=== PATIENT | male | born 1935 | race Caucasian/White ===

== ENCOUNTER → 2022-01-05 14:46 | Outpatient (BNVA) | payer MEDICARE, SELFPAY | PROVIDERS: Family Provider Family Medicine; PCP Family Medicine; Visit Provider Nurse Practitioner Family | DX: R11.2 Nausea with vomiting, unspecified (principal); R50.9 Fever, unspecified | CPT/HCPCS: 80053; 81003; 85025; 87077; 87086; 87184; 87400; 87426 ==

== ENCOUNTER 2024-10-13 08:29 | Inpatient (IN) | payer MEDICARE, SELFPAY ==
--- OUTSIDE RECORDS SUMMARY | 2011-12-27 03:55 | XMS_ITS | Continuity of Care Document ---
Author Organization [facility] Address [address] [place] [phone] Phone Care Team Providers Care Mica Miner Name Role Phone David Diego MD Unavailable Unavailable Medications Medication Instructions Dosage Effective Dates (start - stop) Status Comments simvastatin 10 mg tablet take 1 tablet (10MG) by oral route every day in the evening 10 MG - Active Advance Directives Directive Yes / No Effective Date File Name No Information Encounters Encounter Description Practice Location Reason(s) For Visit Diagnoses Date Provider Providers Copied on Encounter [facility], [address] [facility], [place], [address], [place] tel:[phone] [facility] [place] Aftercare following surgery of the musculoskeletal system, [facility] Dec- 6-201 2 Johnathon Hernandez. [address], [place], [id number] . tel:[phone] [facility], [address] [facility], [place], [address], [place] tel:[phone] [facility] [place] Pain in joint involving lower leg Oct-0 8-201 2 Johnathon Hernandez. [address], [place], [id number] . [phone] [facility], [address] [facility], [place], [address], [place] tel:[phone] [facility] [place] Pain in joint involving lower leg Oct-0 3-201 2 Johnathon Hernandez. [address], [place], [id number] . [phone] Family History Family Member Type Diagnosis Age At Onset No Information Payers Payer name Insurance type Covered republican ID Authoriza tion(s) No Information Social History Type Description Quantity Date Captured Comments Sex Male Smoking Status No Information Chief Complaint And Reason For Visit No Information Reason For Referral Reason For Referral No Information History Of Present Illness Encounter Date Complaint History Of Prese nt Illness No Information Functional Status Date Functional Assessmen t No Information Instructions Date Instruction Additional Infor mation No Information Assessments Type Assessment Date No Information Patient Care Teams Name Effective Dates (start - stop) Status Members No Information
[2024-10-13] VITALS (16 sets, daily range): BP systolic 94–136; BP diastolic 56–93; PULSE 78–115; RESP 15–35; TEMP 36.8–38.2; O2SAT 88–96; BMI 25.1
--- NOTE | 2024-10-13 08:49 | ECG_ITS ---
[facility]: 2024-10-13 Pat Name: Jonny Chiu Department: Room: Gender: Male Eyeglass Fitter: : 1935 Requested By: Raven Canada Order Number: [id number] Jorge Alberto MD: ANGELA THOMPSON Measurements Intervals [place] Rate: 112 P: -35 CO: 185 QRS: -73 QRSD: 158 T: 101 QT: 406 QTc: 557 Interpretive Statements SINUS TACHYCARDIA INTRAVENTRICULAR CONDUCTION DELAY [130+ ms QRS DURATION] LATERAL MYOCARDIAL INFARCTION , PROBABLY RECENT [40+ ms Q WAVE AND/OR ST/T ABNORMALITY IN I/aVL/V5/V6] ACUTE TN No previous ECG available for comparison Electronically Signed On 10-14-2024 13:56:56 CDT by ANGELA THOMPSON [email or web address] [id number]
--- NOTE | 2024-10-13 08:57 | XRR_ITS ---
PROCEDURE INFORMATION: Exam: XR Chest Exam date and time: 10/13/2024 9:05 AM Age: 89 years old Clinical indication: Fever; Additional info: Weakness; Fever; Headache. TECHNIQUE: Imaging protocol: Radiologic exam of the chest. Views: 1 view. COMPARISON: No relevant prior studies available. FINDINGS: Lungs: Unremarkable. No consolidation. Pleural spaces: Unremarkable. No pleural effusion. No pneumothorax. Heart/Mediastinum: Unremarkable. No cardiomegaly. Vasculature: There is unfolding of the thoracic aorta. Bones/joints: The thoracic spine demonstrates mild degenerative changes at multiple levels. Mild degenerative disease of bilateral acromioclavicular joints. There are mild degenerative changes of the glenohumeral joint. XR/XR chest 1V portable [id number] IMPRESSION: No acute cardiopulmonary process.
--- NOTE | 2024-10-13 09:04 | CTR_ITS ---
PROCEDURE INFORMATION: Exam: CT Abdomen And Pelvis With Contrast Exam date and time: 10/13/2024 9:12 AM Age: 89 years old Clinical indication: Nausea and vomiting and other: Diarrhea, hematuria; Prior surgery; Surgery date: 6+ months; Surgery type: Gallbladder TECHNIQUE: Imaging protocol: Computed tomography of the abdomen and pelvis with contrast. Radiation optimization: All CT scans at this facility use at least one of these dose optimization techniques: automated exposure control; mA and/or kV adjustment per patient size (includes targeted exams where dose is matched to clinical indication); or iterative reconstruction. Contrast material: OMNI 350; Contrast volume: 80 ml; Contrast route: INTRAVENOUS (IV); COMPARISON: CR (CHEST, ) 10/13/2024 9:05 AM RADIATION DOSE METRICS: Total DLP (mGy-cm): 541.17 FINDINGS: Coronary arteries: There is moderate atherosclerotic calcification of the coronary arteries. Liver: Hypodense lesion in segment 2 of the liver measuring 1.2 cm, not fully characterized simple on the current study. Gallbladder and biliary ducts: There has been a cholecystectomy. Pancreas: Normal. No ductal dilation. Spleen: Normal. No splenomegaly. Adrenal glands: Normal. No mass. Kidneys and ureters: Bilateral simple renal cysts measuring up to 4.2 cm in the interpolar region of the right kidney. There is no evidence of hydronephrosis. Stomach and bowel: There is mildly excessive colonic stool content. Appendix: No evidence of appendicitis. Intraperitoneal space: Unremarkable. No free air. No significant fluid collection. Vasculature: There are numerous benign phleboliths in the pelvis. The vasculature demonstrates diffuse moderate atherosclerotic calcification. Mild stenosis at the origin of the celiac artery and superior mesenteric artery. Lymph nodes: Unremarkable. No enlarged lymph nodes. Urinary bladder: Unremarkable as visualized. Reproductive: Enlarged prostate gland with its median lobe impinging on the neck of the bladder. Bones/joints: There are mild degenerative changes of the sacroiliac joints. There has been a right total hip arthroplasty. Left hip mildThe pubic symphysis demonstrates mild degenerative changes. There are diffuse enthesopathic changes consistent with benign diffuse idiopathic skeletal hyperostosis (DISH). Soft tissues: There are bilateral fat containing inguinal hernias. CT/CT abdomen pelvis w con* [id number] IMPRESSION: No hydronephrosis on either side or urinary stones. COMMENTS: Consistent with the [employer]'s Incidental Findings Committee white paper (J Am Roberta Radiol 2018): Any incidental renal lesion less than 1 cm or classified as too small to characterize, or any incidental cystic renal lesion characterized as simple-appearing, is likely benign. No follow-up imaging is recommended for these lesions per consensus recommendations based on imaging criteria.
[2024-10-13 09:10] LABS: Hematocrit 44.2 % (37-53); Hemoglobin 15.10 g/dL (11.27-16.99); Mean Corpuscular HGB Conc 34.2 g/dL (30-55); Mean Corpuscular Hemoglobin 30.3 pg (27-33); Mean Corpuscular Volume 88.8 fl (82-101); Nucleated Red Blood Cells % 0 %; Platelet Count 163 10^3/cmm (157-399); Red Blood Count 4.98 10^6/uL (3.85-5.65); White Blood Count 19.84 10^3/uL (3.29-11.43)
--- NOTE | 2024-10-13 09:14 | W.ED.NAVMDI ---
HPI - Nausea/Vomiting/Diarrhea General: Chief complaint: Nausea/Vomiting/Diarrhea Stated complaint: N/V/D headache fever peeing blood Time Seen by Provider: 10/13/24 08:55 Source: patient Mode of arrival: ambulatory Limitations: no limitations History of Present Illness: 89-year-old male states that since yesterday has not been feeling well he states he has had generalized bodyaches headache along with nausea vomiting some diarrhea. States he is also had some blood in his urine and diffuse abdominal cramping. He denies any cough or chest pain denies any fevers denies any worse or improving factors. Associated nausea: Yes Associated symtoms: Reports malaise and nausea; Denies chest pain, dysuria or headache(s) Related Data Home Medications ?Medication ?Instructions ?Recorded ?Confirmed simvastatin 5 mg tablet 5 mg PO DAILY 01/05/22 01/05/22 Previous Rx's ?Medication ?Instructions ?Recorded ciprofloxacin HCl 500 mg tablet 500 mg PO BID 10 days #20 tabs 01/05/22 (Cipro) ondansetron 8 mg disintegrating 8 mg PO Q8H PRN nausea and 01/05/22 tablet vomiting #20 tabs Allergies Allergy/AdvReac Type Severity Reaction Status Date / Time No Known Allergies Allergy Unverified 01/05/22 13:52 Review of Systems Const: Reports: malaise; Denies: fever(s), chills, body aches or change in appetite Eyes: Denies: blurry vision or eye discomfort ENMT: Denies: throat pain or dental pain Card: Denies: chest pain Resp: Denies: dyspnea GI: Reports: abdominal pain, nausea, vomiting and diarrhea : Denies: dysuria Musc: Denies: neck pain or back pain Skin/Breast: Denies: rash Neuro: Denies: headache(s) PFSH ED PFSH: Social History Smoking and tobacco/nicotine status: never used tobacco/nicotine Alcohol intake: never Physical Exam Const: COMMON NORMALS: no acute distress, patient oriented x3 and healthy appearing HENMT: COMMON NORMALS: normocephalic and atraumatic HEAD & SCALP: normocephalic and atraumatic Eye: COMMON NORMALS: conjunctivae normal CONJUNCTIVA: Yes conjunctivae normal Neck/C-Spine: COMMON NORMALS: full ROM and supple Chest: COMMONS NORMALS: normal inspection of the chest and normal palpation of entire chest wall Resp: COMMON NORMALS: normal respiratory effort, No retractions, No use of accessory muscles and clear to auscultation bilaterally AUSCULTATION: clear to auscultation bilaterally Cardio: COMMON NORMALS: regular rhythm and No murmurs present (Cardio) RATE: tachycardic RHYTHM: regular rhythm GI: COMMON NORMALS: Normal to inspection, nondistended, normoactive bowel sounds present, Soft to palpation, non-tender and no masses PALPATION: Yes Soft to palpation Extremity: COMMON NORMALS: normal to inspection and full ROM Neuro: COMMON NORMALS: patient oriented x3, moves all extremities and no focal motor deficits Psych: COMMON NORMALS: mental status grossly normal, Normal thought process present and cooperative THOUGHT PROCESS: Normal thought process present Skin: COMMON NORMALS: no rashes or lesions noted and no wounds GENERAL SKIN EXAM: no rashes or lesions noted Course Vital Signs: Vital signs: Vital Signs Temperature 98.2 F 10/13/24 08:44 Pulse Rate 111 H 10/13/24 09:07 Respiratory Rate 20 H 10/13/24 09:07 Blood Pressure 127/93 10/13/24 09:07 Pulse Oximetry 96 10/13/24 09:07 Oxygen Delivery Me thod Room Air 10/13/24 08:44 MDM - Nausea/Vomiting/Diarrhea Medical Decision Making Patient presents here with generalized weakness he does have a urinary tract infection with elevated white count his blood pressures here been stable did give him a sepsis bolus along with antibiotics spoke to hospitalist will admit at this time. Medical Records I reviewed the patient's medical records. Lab Data I reviewed the patient's lab results. 10/13/24 09:03 10/13/24 09:03 Radiology Impressions Chest X-Ray 10/13/24 08:57 IMPRESSION: No acute cardiopulmonary process. Abdomen/Pelvis CT 10/13/24 09:04 IMPRESSION: No hydronephrosis on either side or urinary stones. COMMENTS: Consistent with the [employer]'s Incidental Findings Committee white paper (J Am Roberta Radiol 2018): Any incidental renal lesion less than 1 cm or classified as too small to characterize, or any incidental cystic renal lesion characterized as simple-appearing, is likely benign. No follow-up imaging is recommended for these lesions per consensus recommendations based on imaging criteria. Laboratory Results WBC 19.84 10^3/uL (3.29-11.43) H 10/13/24 09:03 RBC 4.98 10^6/uL (3.85-5.65) 10/13/24 09:03 Hgb 15.10 g/dL (11.27-16.99) 10/13/24 09:03 Hct 44.2 % (37-53) 10/13/24 09:03 MCV 88.8 fl (82-101) 10/13/24 09:03 MCH 30.3 pg (27-33) 10/13/24 09:03 MCHC 34.2 g/dL (30-55) 10/13/24 09:03 RDW 12.1 % (12.1-15.1) 10/13/24 09:03 Plt Count 163 10^3/cmm (157-399) 10/13/24 09:03 MPV 8.1 fL (7.4-10.4) 10/13/24 09:03 Neut % (Auto) 89.1 % 10/13/24 09:03 Lymph % (Auto) 3.9 % 10/13/24 09:03 [place] % (Auto) 6.1 % 10/13/24 09:03 Eos % (Auto) 0.0 % 10/13/24 09:03 Baso % (Auto) 0.2 % 10/13/24 09:03 Neut # (Auto) 17.68 10^3/uL (1.8-7.7) H 10/13/24 09:03 Lymph # (Auto) 0.8 10^3/uL (0.8-4.8) 10/13/24 09:03 [place] # (Auto) 1.2 10^3/uL (0.2-0.9) H 10/13/24 09:03 Eos # (Auto) 0.0 10^3/uL (0.0-0.8) 10/13/24 09:03 Baso # (Auto) 0.0 10^3/uL (0.0-0.1) 10/13/24 09:03 Nucleated RBC % (auto) 0 % 10/13/24 09:03 Nucleated RBCs # 0.0 /100WBC 10/13/24 09:03 Sodium 134 mmol/L (136-145) L 10/13/24 09:03 Potassium 4.1 mmol/L (3.5-5.1) 10/13/24 09:03 Chloride 99 mmol/L (98-107) 10/13/24 09:03 Carbon Dioxide 21 mmol/L (22-29) L 10/13/24 09:03 Anion Gap 18.1 (5-19) 10/13/24 09:03 BUN 20 mg/dL (8-23) 10/13/24 09:03 Creatinine 1.1 mg/dL (0.7-1.2) 10/13/24 09:03 GFR Calculation Not Reportable 10/13/24 09:03 Glucose 143 mg/dL (65-115) H 10/13/24 09:03 Calculated Osmolality 283 mOsm/kg (285-295) L 10/13/24 09:03 Lactic Acid 3.2 mmol/L (0.5-2.2) H 10/13/24 09:03 Calcium 9.8 mg/dL (8.5-10.5) 10/13/24 09:03 Total Bilirubin 1.2 mg/dL (0.15-1.2) 10/13/24 09:03 AST 17 U/L (0-40) 10/13/24 09:03 ALT 14 U/L (0-41) 10/13/24 09:03 Alkaline Phosphatase 113 U/L (40-130) 10/13/24 09:03 Total Protein 7.6 g/dL (6.6-8.7) 10/13/24 09:03 Albumin 4.2 g/dL (3.5-5.2) 10/13/24 09:03 Globulin 3.4 g/dL (1.3-4.6) 10/13/24 09:03 Lipase 17 U/L (13-60) 10/13/24 09:03 Urine Color Red (Yellow) A 10/13/24 08:53 Urine Appearance Turbid (CLEAR) A 10/13/24 08:53 Urine pH 5.5 (5-7) 10/13/24 08:53 Ur Specific [place] 1.028 (1.005-1.030) 10/13/24 08:53 Urine Protein 1+ (Negative) A 10/13/24 08:53 Urine Glucose (UA) Negative (Normal) 10/13/24 08:53 Urine Ketones 1+ (Negative) H 10/13/24 08:53 Urine Blood 1+ (Negative) A 10/13/24 08:53 Urine Nitrate Positive (Negative) A 10/13/24 08:53 Urine Bilirubin 1+ (Negative) H 10/13/24 08:53 Urine Urobilinogen 1.0 mg/dL (Negative) 10/13/24 08:53 Ur Leukocyte Esterase 3+ (Negative) A 10/13/24 08:53 Urine RBC >100 /hpf (0-2) H 10/13/24 08:53 Urine WBC >100 /hpf (0-5) H 10/13/24 08:53 Ur Squamous Epith Cells 0-5 /hpf (0-5) 10/13/24 08:53 Amorphous Sediment Not Reportable 10/13/24 08:53 Urine Bacteria 4+ /hpf (NONE) H 10/13/24 08:53 Hyaline Casts 0.0 /lpf 10/13/24 08:53 All radiology interpretation(s) finalized by discharge Discharge Plan Discharge Patient Disposition: Admitted As Inpatient Clinical Impression: UTI (urinary tract infection) Condition: Stable Coding Level of Care Code ED Transition Manager for Curt Agosto
[2024-10-13] MEDS: iohexol 350 mg/mL 500 mL Btl (per mL) IV (09:19)
[2024-10-13 09:26] LABS: Glucose Urine UA Negative (Normal); Nitrate Urine Positive (Negative); Specific Gravity, Urine 1.028 (1.005-1.030)
[2024-10-13 09:33] LABS: Alanine Aminotransferase 14 U/L (0-41); Albumin Level 4.2 g/dL (3.5-5.2); Alkaline Phosphatase 113 U/L (40-130); Anion Gap 18.1 (5-19); Aspartate Amino Transferase 17 U/L (0-40); Blood Urea Nitrogen 20 mg/dL (8-23); Calcium 9.8 mg/dL (8.5-10.5); Carbon Dioxide 21 mmol/L (22-29); Chloride 99 mmol/L (98-107); Creatinine Clr Calc Pharmacy 48.1029; Globulin 3.4 g/dL (1.3-4.6); Glucose 143 mg/dL (65-115); Lipase 17 U/L (13-60); Osmolality Calculated 283 mOsm/kg (285-295); Potassium 4.1 mmol/L (3.5-5.1); Sodium 134 mmol/L (136-145); Total Protein 7.6 g/dL (6.6-8.7)
[2024-10-13 09:34] LABS: Lactic Sepsis W/Reflex 3.2 mmol/L (0.5-2.2)
[2024-10-13 09:44] LABS: Add Urine Microscopic? YES; UA Slide Review UA Slide Review Perf
[2024-10-13] MEDS: ondansetron 2 mg/ML SDV 2 mL 4 MG IVP ×2 (09:52→23:11)
[2024-10-13] MEDS: cefTRIAXone 1,000 mg SDV 1000 MG IVP (09:56)
[2024-10-13 11:05] LABS: Reflex Lactate Order REFLEX LACTIC ORDERD
[2024-10-13 12:24] LABS: Lactic Acid level (Lactate) 2.1 mmol/L (0.5-2.2)
--- NOTE | 2024-10-13 13:21 | PM.HP ---
Providers/Chief Complaint Admitting Physician: Charissa Lares MD Chief Complaint: N/V/D headache fever peeing blood History of Present Illness Jonny Chiu is a 89 year old male with past medical history of coronary disease with PCI, hyperlipidemia, lives in [facility] presented to the hospital for feeling ill since yesterday around noon. He has been having nausea vomiting diarrhea and blood in urine. He states he has been incontinent since yesterday. In the past has not had similar issues. He is also experiencing chills. In ER CT abdomen pelvis was pursued which did not show any hydronephrosis or urinary stones. WBC count 19,000, creatinine 1.1, lactic acid 3.2. Urinalysis shows 3+ leukocyte esterase, greater than 100 WBC, 1+ ketones positive nitrates, 4+ bacteria Medications/Allergies Home Medications ?Medication ?Instructions ?Recorded ?Confirmed ?Last Taken ?Type aspirin 81 mg tablet,delayed 81 mg PO DAILY 10/13/24 10/13/24 10/12/24 07:00 History release ([place] Low Dose Aspirin) cholecalciferol (vitamin D3) 125 125 mcg PO DAILY 10/13/24 10/13/24 10/12/24 08:00 History mcg (5,000 unit) tablet (Vitamin D3) clopidogrel 75 mg tablet 75 mg PO DAILY 10/13/24 10/13/24 10/12/24 07:00 History coenzyme Q10 30 mg capsule 30 mg PO DAILY 10/13/24 10/13/24 10/12/24 08:00 History metoprolol tartrate 25 mg tablet 25 mg PO BID 10/13/24 10/13/24 10/12/24 07:00 History multivitamin with minerals-folic 1 tab PO DAILY 10/13/24 10/13/24 10/12/24 08:00 History acid 400 mcg-lycopene 370 mcg tablet (One-A-Day Men's 50 Plus) nitroglycerin 0.4 mg sublingual See Rx Instructions .Route .COMPLEX 10/13/24 10/13/24 Unknown History tablet omega 9-zdi-rug-fish oil 60 mg-90 1 cap PO DAILY 10/13/24 10/13/24 10/12/24 08:00 History mg-500 mg capsule (Fish Oil) simvastatin 40 mg tablet 40 mg PO QPM 08/06/0410/13/24 10/11/24 20:00 History vitamin B complex 1 tab PO DAILY 10/13/24 10/13/24 10/11/24 History vitamins A,C,C-ravj-fendcu 2,148 2 tab PO BID 10/13/24 10/13/24 10/12/24 07:00 History mcg-113 mg-45 mg-17.4 mg tablet (PreserVision AREDS) Allergies Allergy/AdvReac Type Severity Reaction Status Date / Time No Known Allergies Allergy Unverified 01/05/22 13:52 PFSH Acute PFSH: Social History Smoking and tobacco/nicotine status: never used tobacco/nicotine Alcohol intake: never Vitals/I&O/Wt Last Vital Signs Temp 98.2 F 10/13/24 08:44 Pulse 110 H 10/13/24 12:00 Resp 19 H 10/13/24 12:00 BP 116/66 10/13/24 12:00 Pulse Ox 92 10/13/24 12:00 O2 Del Method Room Air 10/13/24 08:44 10/12/24 10/13/24 10/13/24 22:59 06:59 14:59 Intake Total 0 / 0 Balance 0 / 0 Weight last 48 hrs Weight 77.111 kg Physical Exam Narrative: General: Alert oriented x3, patient seen laying in bed stating he is feeling really cold and having chills. He is covered with 4 blankets. Requesting for another warm blanket. at bedside. HEENT: Normocephalic, atraumatic, EOMI, breathing room air. Cardio: Regular rate rhythm, normal S1-S2, Respiratory: Clear to auscultation bilaterally no wheezes no rhonchi. GI: Abdomen soft, nontender, nondistended, bowel sounds + Extremities: No edema bilateral lower extremities Data 10/13/24 09:03 10/13/24 09:03 Micro: Microbiology 10/13/24 09:42 Blood Culture - Preliminary Blood SPECIMEN COLLECTED 10/13/24 09:40 Blood Culture - Preliminary Blood SPECIMEN COLLECTED A&P Assessment and plan 1. UTI (urinary tract infection): 2. Nausea & vomitin. Fever: 4. Coronary disease: 5. Diarrhea: Plan: #UTI #CAD status post PCI #Hyperlipidemia #Nausea vomiting diarrhea ? Hemoglobin is stable at this time. ? Check stool culture ? Denies drinking or smoking. ? Continue on aspirin Plavix metoprolol tartrate ? CT abdomen without any hydronephrosis ? Patient having chills, had a fever at home 101 ? Continue on Zosyn ? Await urine culture, blood cultures Placed on gentle IV fluid hydration 75 cc/h. ? Lactic acid 3.2 initially however now has normalized. ? White count is 20,000 possibly secondary to UTI ? I will refrain from placing a Ortega at this time due to active infection. DVT prophylaxis: Heparin SQ twice daily Full code PDMP PDMP Reviewed: Not Reviewed Attestations Medical Necessity Statement*: UTI, greater than 2 midnight stay for management of UTI. Diagnoses UTI (urinary tract infection) N39.0 Nausea & vomiting R11.2 Fever R50.9 Coronary disease I25.10 Diarrhea R19.7
[2024-10-13 13:59] LABS: Procalcitonin 0.54 ng/mL (0-0.5); Thyroid Stimulating Hormone 1.22 uIU/mL (0.27-4.20)
[2024-10-13 14:10] LABS: Cholesterol 91 mg/dL (0-200); HDL Cholesterol 36 mg/dL (60-100); Triglycerides 84 mg/dL (0-150)
[2024-10-13] MEDS: heparin 5,000 unit/mL INJ 1 mL 5000 UNIT SUBCUT (14:45)
[2024-10-13] MEDS: piperacillin-tazobactam 3.375 GM in sodium chloride 0.9% (plus) 50 ML IV ×2 (15:42→22:08)
[2024-10-13] MEDS: ATORVASTATIN 10 MG TABLET 20 MG PO (17:10)
--- NOTE | 2024-10-13 17:52 | PC.NURSE ---
Bladder scanned patient post void. Patient voided 100ml, bladder scan showed 30ml retained.
[2024-10-14] VITALS (7 sets, daily range): BP systolic 93–113; BP diastolic 56–65; PULSE 65–88; RESP 15–17; TEMP 36.3–37; O2SAT 90–95
--- NOTE | 2024-10-14 03:03 | ECG_ITS ---
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1935 Requested By: Marya Travis Order Number: [id number] Reading MD: ANGELA THOMPSON Measurements Intervals [place] Rate: 83 P: 0 [place]: 0 QRS: -73 QRSD: 164 T: 97 QT: 427 QTc: 504 Interpretive Statements ATRIAL FIBRILLATION INTRAVENTRICULAR CONDUCTION DELAY [130+ ms QRS DURATION] LATERAL MYOCARDIAL INFARCTION , PROBABLY indeterminate [40+ ms Q WAVE AND/OR ST/T ABNORMALITY IN I/aVL/V5/V6] Compared to ECG 10/13/2024 08:49:36 Sinus tachycardia no longer present Myocardial infarct finding still present Electronically Signed On 10-14-2024 13:55:23 CDT by ANGELA THOMPSON [email or web address]
--- NOTE | 2024-10-14 03:31 | PC.NURSE ---
Oxygen Pt. oxygen at this time is 87-89% on room air. Lung sounds remain clear. Patient placed on 2L NC with oxygen returning to 94%. Patient is in afib with HR 84 on telemetry, confirmed by EKG. Awaiting reply from Dr. Solo as afib is not noted in patient history.
[2024-10-14 04:02] LABS: Hematocrit 34.9 % (37-53); Hemoglobin 12.00 g/dL (11.27-16.99); Mean Corpuscular HGB Conc 34.4 g/dL (30-55); Mean Corpuscular Hemoglobin 30.3 pg (27-33); Mean Corpuscular Volume 88.1 fl (82-101); Nucleated Red Blood Cells % 0 %; Platelet Count 114 10^3/cmm (157-399); Red Blood Count 3.96 10^6/uL (3.85-5.65); White Blood Count 19.07 10^3/uL (3.29-11.43)
[2024-10-14 04:24] LABS: Alanine Aminotransferase 11 U/L (0-41); Albumin Level 3.2 g/dL (3.5-5.2); Alkaline Phosphatase 96 U/L (40-130); Anion Gap 13.6 (5-19); Aspartate Amino Transferase 26 U/L (0-40); Blood Urea Nitrogen 20 mg/dL (8-23); Calcium 8.3 mg/dL (8.5-10.5); Carbon Dioxide 20 mmol/L (22-29); Chloride 104 mmol/L (98-107); Creatinine Clr Calc Pharmacy 58.7924; Globulin 2.6 g/dL (1.3-4.6); Glucose 133 mg/dL (65-115); Magnesium 2.1 mg/dL (1.7-2.3); Osmolality Calculated 283 mOsm/kg (285-295); Potassium 3.6 mmol/L (3.5-5.1); Sodium 134 mmol/L (136-145); Total Protein 5.8 g/dL (6.6-8.7)
[2024-10-14] MEDS: piperacillin-tazobactam 3.375 GM in sodium chloride 0.9% (plus) 50 ML IV ×3 (05:05→19:31)
[2024-10-14 12:21] LABS: Iron 14 ug/dL (59-158); Total Iron Binding Capacity 159 mcg/dl; Unsaturated Iron Binding 145 ug/dL (112-347)
[2024-10-14 12:24] LABS: Estmated Average Glucose 108; Hemoglobin A1C 5.4 % (4.0-6.0)
[2024-10-14 12:38] LABS: Procalcitonin 2.12 ng/mL (0-0.5); Vitamin B12 604 pg/mL (232-1245)
[2024-10-14] MEDS: HYDROcodone-acetaminophen 5-325 mg Tablet 1 TAB PO (14:11)
--- NOTE | 2024-10-14 16:14 | P.PN_ITS ---
Subjective 2 Subjective: Hospital course, labs appreciated. Patient laying comfortably in bed. Denies any nausea, vomiting, headache. States feeling slightly better. On review since patient has been having hematuria since admission. Patient states hematuria started around 6 to 12 hours prior to admission. Vitals/I&O/Wt Last Vital Signs Temp 98.3 F 10/14/24 16:00 Pulse 67 10/14/24 16:00 Resp 17 10/14/24 16:00 BP 113/65 10/14/24 16:00 Pulse Ox 93 10/14/24 16:00 O2 Del Method Room Air 10/14/24 09:57 O2 Flow Rate 2 10/14/24 09:57 10/14/24 10/14/24 10/14/24 06:59 14:59 22:59 Intake Total 1050 / 3600 530 / 530 Output Total 225 / 625 Balance 825 / 2975 530 / 530 Weight last 48 hrs Weight 79.832 kg Weight 77.111 kg Physical Exam 2 Narrative: General: Alert oriented x3, patient seen laying in bed stating he is feeling really cold and having chills. He is covered with 4 blankets. Requesting for another warm blanket. at bedside. HEENT: Normocephalic, atraumatic, EOMI, breathing room air. Cardio: Regular rate rhythm, normal S1-S2, Respiratory: Clear to auscultation bilaterally no wheezes no rhonchi. GI: Abdomen soft, nontender, nondistended, bowel sounds + Extremities: No edema bilateral lower extremities Data 10/14/24 03:46 10/14/24 03:46 Micro: Microbiology 10/13/24 08:53 Urine Culture - Preliminary Urine,Clean Catch Gram Negative Rods 10/13/24 09:42 Blood Culture - Preliminary Blood NEGATIVE TO DATE 10/13/24 09:40 Blood Culture - Preliminary Blood NEGATIVE TO DATE A&P Assessment and plan 1. UTI (urinary tract infection): With hematuria. CT on pelvis on admission negative for kidney stones or hydronephrosis. Follow-up blood culture, urine culture. Continue with IV ceftriaxone 1 g daily. De-escalate as per culture sensitivities. NS at 75 cc/h. 2. Hematuria: Could be in setting of acute cystitis. Hemoglobin stable. Will plan for CBI. Patient is agreeable. Start on Pyridium 200 mg 3 times daily for 3 days along with Flomax 0.4 mg daily. If hematuria not subsiding in next 24 to 48 hours patient will possibly need to be transition to a tertiary center where urology is available. 3. Nausea & vomitin. Fever: 5. Coronary disease: With recent PCI. Continue with home dose of aspirin, statin. Holding off on Plavix given hematuria. Blood pressure soft. Hold off on beta-richard for now. 6. Diarrhea: Plan: Full code. SCD for DVT prophylaxis. Hold off on heparin for DVT prophylaxis. Famotidine for PUD prophylaxis PDMP PDMP Reviewed: Not Reviewed Attestations 2 Medical Necessity Statement*: Requires further hospitalization for management of UTI/cystitis with hematuria Diagnoses UTI (urinary tract infection) N39.0 Hematuria R31.9 Nausea & vomiting R11.2 Fever R50.9 Coronary disease I25.10 Diarrhea R19.7
[2024-10-14] MEDS: ATORVASTATIN 10 MG TABLET 20 MG PO (18:12)
[2024-10-15] VITALS (7 sets, daily range): BP systolic 110–120; BP diastolic 63–69; PULSE 68–86; RESP 16–18; TEMP 36.9–37.6; O2SAT 90–95
[2024-10-15] MEDS: piperacillin-tazobactam 3.375 GM in sodium chloride 0.9% (plus) 50 ML IV ×3 (02:35→18:31)
--- NOTE | 2024-10-15 05:00 | PC.NURSE ---
pt states he is no longer hurting and declines to have the ordered morphine or oral meds at this time. Pt verbalized understanding that they were available if he did want them.
[2024-10-15 05:05] LABS: Hematocrit 32.5 % (37-53); Hemoglobin 11.00 g/dL (11.27-16.99); Mean Corpuscular HGB Conc 33.8 g/dL (30-55); Mean Corpuscular Hemoglobin 30.1 pg (27-33); Mean Corpuscular Volume 88.8 fl (82-101); Nucleated Red Blood Cells % 0 %; Platelet Count 111 10^3/cmm (157-399); Red Blood Count 3.66 10^6/uL (3.85-5.65); White Blood Count 12.92 10^3/uL (3.29-11.43)
[2024-10-15 05:28] LABS: Alanine Aminotransferase 12 U/L (0-41); Albumin Level 3.0 g/dL (3.5-5.2); Alkaline Phosphatase 82 U/L (40-130); Anion Gap 14.0 (5-19); Aspartate Amino Transferase 22 U/L (0-40); Blood Urea Nitrogen 17 mg/dL (8-23); Calcium 8.3 mg/dL (8.5-10.5); Carbon Dioxide 20 mmol/L (22-29); Chloride 105 mmol/L (98-107); Creatinine Clr Calc Pharmacy 67.1241; Globulin 2.7 g/dL (1.3-4.6); Glucose 114 mg/dL (65-115); Magnesium 2.2 mg/dL (1.7-2.3); Osmolality Calculated 282 mOsm/kg (285-295); Potassium 4.0 mmol/L (3.5-5.1); Sodium 135 mmol/L (136-145); Total Protein 5.7 g/dL (6.6-8.7)
--- NOTE | 2024-10-15 14:14 | P.PN_ITS ---
Subjective 2 Subjective: No acute events overnight. Patient has remained hemodynamically stable and afebrile. Has been continued on CBI overnight. Hematuria had decreased with CBI but on withholding started having urinary clots. Currently states feeling better. Denies any nausea, vomiting. Vitals/I&O/Wt Last Vital Signs Temp 98.5 F 10/15/24 11:30 Pulse 68 10/15/24 11:30 Resp 17 10/15/24 11:30 BP 116/64 10/15/24 11:30 Pulse Ox 95 10/15/24 11:30 O2 Del Method Nasal Cannula 10/15/24 11:30 O2 Flow Rate 2 10/15/24 11:30 10/14/24 10/15/24 10/15/24 22:59 06:59 14:59 Intake Total 1530 / 2060 100 / 2160 1430 / 1430 Balance 1530 / 2060 100 / 2160 1430 / 1430 Weight last 48 hrs Weight 83.631 kg Weight 79.832 kg Physical Exam 2 Narrative: General: Alert oriented x3, patient seen laying in bed stating he is feeling really cold and having chills. He is covered with 4 blankets. Requesting for another warm blanket. at bedside. HEENT: Normocephalic, atraumatic, EOMI, breathing room air. Cardio: Regular rate rhythm, normal S1-S2, Respiratory: Clear to auscultation bilaterally no wheezes no rhonchi. GI: Abdomen soft, nontender, nondistended, bowel sounds + Extremities: No edema bilateral lower extremities Data 10/15/24 04:28 10/15/24 04:28 Micro: Microbiology 10/13/24 08:53 Urine Culture - Final Urine,Clean Catch Escherichia coli 10/13/24 09:42 Blood Culture - Preliminary Blood NEGATIVE TO DATE 10/13/24 09:40 Blood Culture - Preliminary Blood NEGATIVE TO DATE A&P Assessment and plan 1. UTI (urinary tract infection): With hematuria. CT on pelvis on admission negative for kidney stones or hydronephrosis. Follow-up blood culture, urine culture. Continue with IV ceftriaxone 1 g daily. De-escalate as per culture sensitivities. NS at 75 cc/h. 2. Hematuria: Could be in setting of acute cystitis. Hemoglobin stable. Will plan for CBI. Patient is agreeable. Start on Pyridium 200 mg 3 times daily for 3 days along with Flomax 0.4 mg daily. If hematuria not subsiding in next 24 to 48 hours patient will possibly need to be transition to a tertiary center where urology is available. 3. Nausea & vomitin. Fever: 5. Coronary disease: With recent PCI. Continue with home dose of aspirin, statin. Holding off on Plavix given hematuria. Blood pressure soft. Hold off on beta-richard for now. 6. Diarrhea: Plan: Full code. SCD for DVT prophylaxis. Hold off on heparin for DVT prophylaxis. Famotidine for PUD prophylaxis Plan for the day: Appreciate urine culture and blood culture. Urine culture grew concerning for pansensitive E. coli. Appreciate sensitivity. For now we will continue with IV Zosyn. Continues to have hematuria. Continue with CBI for now. Will wean CBI down depending on hematuria going forward. If he continues to have hematuria in next 24 to 48 hours we will need to transfer to a tertiary center where urology is available. For now continue with Pyridium 200 mg twice daily for next 3 days, Flomax. Continue with NS at 75 cc/h. PDMP PDMP Reviewed: Not Reviewed Attestations 2 Medical Necessity Statement*: Requires further hospitalization for management of UTI/cystitis concern for hematuria requiring CBI Diagnoses UTI (urinary tract infection) N39.0 Hematuria R31.9 Nausea & vomiting R11.2 Fever R50.9 Coronary disease I25.10 Diarrhea R19.7
[2024-10-15] MEDS: ATORVASTATIN 10 MG TABLET 20 MG PO (17:25)
[2024-10-16] VITALS (7 sets, daily range): BP systolic 112–129; BP diastolic 64–77; PULSE 71–97; RESP 16–19; TEMP 36.7–37.2; O2SAT 90–97
[2024-10-16] MEDS: piperacillin-tazobactam 3.375 GM in sodium chloride 0.9% (plus) 50 ML IV ×3 (02:46→23:51)
[2024-10-16 05:21] LABS: Hematocrit 31.1 % (37-53); Hemoglobin 10.20 g/dL (11.27-16.99); Mean Corpuscular HGB Conc 32.8 g/dL (30-55); Mean Corpuscular Hemoglobin 29.7 pg (27-33); Mean Corpuscular Volume 90.7 fl (82-101); Nucleated Red Blood Cells % 0 %; Platelet Count 131 10^3/cmm (157-399); Red Blood Count 3.43 10^6/uL (3.85-5.65); White Blood Count 9.42 10^3/uL (3.29-11.43)
[2024-10-16 05:37] LABS: Alanine Aminotransferase 21 U/L (0-41); Albumin Level 2.8 g/dL (3.5-5.2); Alkaline Phosphatase 166 U/L (40-130); Anion Gap 12.7 (5-19); Aspartate Amino Transferase 32 U/L (0-40); Blood Urea Nitrogen 13 mg/dL (8-23); Calcium 8.2 mg/dL (8.5-10.5); Carbon Dioxide 21 mmol/L (22-29); Chloride 102 mmol/L (98-107); Creatinine Clr Calc Pharmacy 68.4959; Globulin 2.8 g/dL (1.3-4.6); Glucose 119 mg/dL (65-115); Osmolality Calculated 275 mOsm/kg (285-295); Potassium 3.7 mmol/L (3.5-5.1); Sodium 132 mmol/L (136-145); Total Protein 5.6 g/dL (6.6-8.7)
[2024-10-16] MEDS: fluticasone nasal spray 16gm Btl 1 SPRAY NASAL (07:03)
--- NOTE | 2024-10-16 08:59 | XR_ITS ---
WS: [id number] XR chest 1V portable [id number] REASON FOR EXAM: sob FINDINGS: Diffuse reticular and groundglass opacities with peribronchial cuffing in the right upper lung with volume loss. Similar but less severe findings are noted in the right lower lung and within the left lower lung. The left costophrenic angle is blunted. Lung alexander were clear on the portable chest x-ray of 10/13/2024. There was no pleural effusion on the CT scan of the same date. Moderate ectasia and mild tortuosity of the thoracic aorta. Normal heart size with coronary artery stent/stents. Degenerative spondylosis in the thoracic spine. XR/XR chest 1V portable [id number] IMPRESSION: The rapidity of development and the multiple locations of the lung abnormalitie s suggest the possibility of aspiration. Very atypical pattern for pulmonary ed shanae. Viral pneumonitis is possible.
[2024-10-16 09:33] LABS: Magnesium 2.1 mg/dL (1.7-2.3)
[2024-10-16] MEDS: cefTRIAXone 1,000 mg SDV 1000 MG IVP (09:37)
--- NOTE | 2024-10-16 10:11 | ECG_ITS ---
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 Measurements Intervals [place] Rate: 85 P: 43 DC: 256 QRS: -68 QRSD: 164 T: 81 QT: 418 QTc: 499 Interpretive Statements SINUS RHYTHM WITH FIRST DEGREE AV BLOCK LEFT AXIS DEVIATION [QRS AXIS < -30] INTRAVENTRICULAR CONDUCTION DELAY [130+ ms QRS DURATION] LATERAL MYOCARDIAL INFARCTION , OF INDETERMINATE AGE [40+ ms Q WAVE AND/OR ST/T ABNORMALITY IN I/aVL/V5/V6] Compared to ECG 10/14/2024 03:08:52 First degree AV block now present Left-axis deviation now present Atrial fibrillation no longer present Myocardial infarct finding still present Electronically Signed On 10-16-2024 22:49:59 CDT by Dianne Sheridan M.D. [id number]
[2024-10-16 10:32] LABS: Troponin(5th) Baseline 95 ng/L (0-15)
--- NOTE | 2024-10-16 11:07 | PC.SOCIAL ---
IMM Update pg 2 of IMM Updated and reviewed w/ patient. Copy provided and copy dated, initialed and placed in chart.
--- NOTE | 2024-10-16 11:55 | USCV_ITS ---
Jonny Chiu Age: 89 Gender: M : 1935 Exam Date: 10/16/2024 12:09 Ordering Phys: Toni Lobo MD Technologist: Exam Location: [facility] [place] Indication: cp murmur BP: 134 / 74 HR: 80 Rhythm: Sinus Technical Quality: Adequate MEASUREMENTS (Male / Female) Normal Values 2D ECHO LV Diastolic Diameter PLAX 4.7 cm 4.2 - 5.9 / 3.9 - 5.3 cm IVS Diastolic Thickness 1.5 cm 0.6 - 1.0 / 0.6 - 0.9 cm IVS Systolic Thickness 1.8 cm LVPW Diastolic Thickness 1.6 cm 0.6 - 1.0 / 0.6 - 0.9 cm LVPW Systolic Thickness 2.0 cm LVOT Diameter 2.0 cm LV Ejection Fraction 2D Teich 65.5 % LV Ejection Fraction MOD 4C 46.9 % LV Ejection Fraction MOD 2C 55.3 % LV Ejection Fraction 2C AL 55.8 % LA Diameter 3.9 cm RA Systolic Volume 4C AL 59.5 ml RA Systolic Volume 4C MOD 58.1 ml Aorta at Sinotubular Diameter 3.7 cm M-MODE LA Ao Ratio MM 1.1 AV Cusp Separation MM 1.8 cm DOPPLER AV Peak Velocity 283.7 cm/s LVOT Peak Velocity 86.0 cm/s AV Area Cont Eq vti 1.1 cm squared AV Area Cont Eq pk 1.0 cm squared MV Peak Velocity 143.0 cm/s MV Area PHT 3.6 cm squared Mitral E to A Ratio 0.8 TV Peak Velocity 119.5 cm/s TR Peak Velocity 130.0 cm/s TR Peak Gradient 6.8 mmHg PV Peak Velocity 111.0 cm/s FINDINGS Left Ventricle Left ventricle is normal in size. LV systolic function is normal with EF of 50-55%. No regional wall motion abnormalities are seen. Grade 1 diastolic dysfunction Right Ventricle Normal in size and function Right Atrium Normal in size Left Atrium Dilated Mitral Valve Mild mitral annular calcification. Trace mitral regurgitation. Aortic Valve Aortic valve is thickened and calcified. Aortic valve area 1.04cm squared and mean gradient of 16 mmHg. Moderate aortic stenosis. Tricuspid Valve Insufficient TR jet to calculate RVSP Pulmonic Valve Not well visualized Pericardium Normal Aorta Aorto is dilated with diameter of 3.67cm IVC Not visualized CONCLUSIONS LV systolic function is normal with EF of 50-55%. Grade 1 diastolic dysfunction. Left atrial dilation Trace mitral regurgitation Moderate aortic stenosis Aorta is dilated with diameter of 3.67 cm Branden Jacob MD (Electronically Signed) Final Date: 16 October 2024 13:00 S
[2024-10-16 12:12] LABS: Glucose Urine UA Negative (Normal); Nitrate Urine Positive (Negative); Specific Gravity, Urine 1.011 (1.005-1.030)
[2024-10-16 12:15] LABS: Add Urine Microscopic? YES
--- NOTE | 2024-10-16 12:24 | ECG_ITS ---
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 Measurements Intervals [place] Rate: 79 P: 28 TN: 224 QRS: -71 QRSD: 168 T: 79 QT: 428 QTc: 492 Interpretive Statements SINUS RHYTHM WITH FIRST DEGREE AV BLOCK INTRAVENTRICULAR CONDUCTION DELAY [130+ ms QRS DURATION] Compared to ECG 10/16/2024 10:11:13 Left-axis deviation no longer present Myocardial infarct finding no longer present Electronically Signed On 10-16-2024 22:53:05 CDT by Dianne Sheridan M.D. [email or web address] [id number]
[2024-10-16 12:37] LABS: Troponin 5 2HR 97.20 ng/L (0-15); Troponin 5 2HR Delta 2.20 ABS# (0-10)
--- NOTE | 2024-10-16 12:39 | P.PN_ITS ---
Subjective 2 Subjective: No acute events overnight. Today morning seen sitting up in chair. Complaining of chest heaviness and difficulty in breathing. Denies any nausea, vomiting, headache. Continues to be on CBI. Urine seems to be getting clear. Vitals/I&O/Wt Last Vital Signs Temp 98.8 F 10/16/24 11:17 Pulse 76 10/16/24 11:17 Resp 16 10/16/24 11:17 BP 112/67 10/16/24 11:17 Pulse Ox 93 10/16/24 11:17 O2 Del Method Nasal Cannula 10/16/24 11:17 O2 Flow Rate 3 10/16/24 11:17 10/15/24 10/16/24 10/16/24 22:59 06:59 14:59 Intake Total 1298.75 / 2728.75 290 / 3018.75 910 / 910 Balance 1298.75 / 2728.75 290 / 3018.75 910 / 910 Weight last 48 hrs Weight 83.092 kg Weight 83.631 kg Physical Exam 2 Narrative: General: Alert oriented x3, patient seen laying in bed stating he is feeling really cold and having chills. He is covered with 4 blankets. Requesting for another warm blanket. at bedside. HEENT: Normocephalic, atraumatic, EOMI, breathing room air. Cardio: Regular rate rhythm, normal S1-S2, Respiratory: Clear to auscultation bilaterally no wheezes no rhonchi. GI: Abdomen soft, nontender, nondistended, bowel sounds + Extremities: No edema bilateral lower extremities Data 10/16/24 04:20 10/16/24 04:20 Micro: Microbiology 10/13/24 08:53 Urine Culture - Final Urine,Clean Catch Escherichia coli A&P Assessment and plan 1. UTI (urinary tract infection): With hematuria. CT on pelvis on admission negative for kidney stones or hydronephrosis. Blood culture negative. Urine culture positive for E. coli. Switch to IV ceftriaxone 1 g daily. Patient seems to be developing mild CHF. Discontinue IV fluids.. 2. Hematuria: Could be in setting of acute cystitis. Hemoglobin stable. Continue with CBI for now. Will try to trickle down CBI further today. If patient develops any blood clot in urine or decrease in urinary output after trickling down CBI then we will have to try to transfer patient to tertiary center where urology is available. Continue with Pyridium 200 mg 3 times a day for 3 days overall. Continue with Flomax 0.4 mg daily. Repeat urinalysis. Continue to hold off on heparin. SCD for DVT prophylaxis. Continue to hold off on Plavix. 3. Nausea & vomitin. Fever: 5. Coronary disease: With recent PCI. Continue with home dose of aspirin, statin. Patient complaining of chest heaviness today. Given recent PCI and off Plavix for hematuria for now we will check troponin cycle. Stat echocardiogram. If troponin trending up or any regional wall motion abnormality and echocardiogram will consult cardiology and start on heparin drip. Aspirin 325 mg one-time. 6. Diarrhea: Plan: Hypoxia/chest heaviness/shortness of breath: Patient has history of CAD. Cannot rule out in setting of ACS. Has been on IV fluids. Could be developing mild CHF. Stop IV fluids as above. Stat chest x-ray. Troponin cycle as above. Resp viral panel, D-dimer. IV Lasix 40 mg one-time. Will plan further treatment depending on the results. Full code. SCD for DVT prophylaxis. Hold off on heparin for DVT prophylaxis. Famotidine for PUD prophylaxis PDMP PDMP Reviewed: Not Reviewed Attestations 2 Medical Necessity Statement*: Requires further hospitalization for management of UTI, hematuria currently on CBI, hypoxia with difficulty in breathing in a patient with recent PCI Diagnoses UTI (urinary tract infection) N39.0 Hematuria R31.9 Nausea & vomiting R11.2 Fever R50.9 Coronary disease I25.10 Diarrhea R19.7
[2024-10-16] MEDS: FUROsemide 10 mg/mL SDV 4mL 40 MG IVP (13:24)
--- NOTE | 2024-10-16 14:38 | CT_ITS ---
WS: [id number] CT CHEST ANGIOGRAPHY WITH REFORMATS HISTORY: elevated dimer, chest pain, hypoxia TECHNIQUE: Contiguous axial images are obtained through the chest during arterial injection of intravenous contrast. Images are reconstructed to evaluate the pulmonary arteries. MIP imaging also reviewed. All CT scans at [facility] use at least one of these dose optimization techniques: automated exposure control; mA and/or kV adjustment per patient size (includes targeted exams where dose is matched to clinical indication); or iterative reconstruction. CONTRAST: Omnipaque 350; 100 mL IV. DLP: 393.26 mGy.cm COMPARISON: None available. Good opacification of the pulmonary arteries. No pulmonary emboli identified. No RIGHT heart strain. Normal size heart. Moderate atherosclerosis aorta. Mild dilatation of the ascending aorta to 4.2 cm. Small bilateral layering pleural effusions. Moderate consolidative opacification involving greater than 50% RIGHT upper lobe. There is a small amount of opacification extending into the RIGHT middle lobe. Subsolid opacification is subsegmental LEFT upper lobe. No mass is identified. No mediastinal or hilar pathologic lymph nodes. Small hiatal hernia. No adrenal mass. Prior cholecystectomy. Common bile duct is not identified in its entirety. Suprarenal aortic calcification. No destructive bone lesions. CT/CT angio chest PE protcl [id number] IMPRESSION: 1. No pulmonary embolism. 2. Consolidation involving a large portion of the RIGHT upper lobe consistent with pneumonia. 3. Additional subsolid consolidation in the RIGHT middle lobe and groundglass consolidation LEFT upper lobe. 4. No pathologically enlarged lymph nodes. 5. 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
[2024-10-16] MEDS: iohexol 350 mg/mL 500 mL Btl (per mL) IV (15:06)
[2024-10-16 15:25] LABS: Coronavirus 229E,HKU1,NL63,OC4 Not Detected (NOT DETECT); Parainfluenza Virus Type 1 Not Detected (NOT DETECT); Parainfluenza Virus Type 2 Not Detected (NOT DETECT); Parainfluenza Virus Type 3 Not Detected (NOT DETECT); Parainfluenza Virus Type 4 Not Detected (NOT DETECT); SARS-COV-2 Not Detected (NOT DETECT)
--- NOTE | 2024-10-16 15:56 | ECG_ITS ---
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 Measurements Intervals [place] Rate: 78 P: 50 [place]: 245 QRS: -72 QRSD: 161 T: 81 QT: 431 QTc: 493 Interpretive Statements SINUS RHYTHM WITH FIRST DEGREE AV BLOCK WITH OCCASIONAL SUPRAVENTRICULAR PREMATURE COMPLEXES INTRAVENTRICULAR CONDUCTION DELAY [130+ ms QRS DURATION] LATERAL MYOCARDIAL INFARCTION , OF INDETERMINATE AGE [40+ ms Q WAVE AND/OR ST/T ABNORMALITY IN I/aVL/V5/V6] INFERIOR MYOCARDIAL INFARCTION , OF INDETERMINATE AGE [40+ ms Q WAVE AND/OR ST/T ABNORMALITY IN II/aVF] Compared to ECG 10/16/2024 12:24:47 Myocardial infarct finding now present Electronically Signed On 10-16-2024 22:51:55 CDT by Dianne Sheridan M.D. [id number]
[2024-10-16] MEDS: HYDROcodone-acetaminophen 5-325 mg Tablet 1 TAB PO (16:15)
[2024-10-16 17:12] LABS: Troponin 5 6HR 115.2 ng/L (0-15); Troponin 5 6HR Delta 20.2 ng/L (0-12)
[2024-10-16] MEDS: ATORVASTATIN 10 MG TABLET 20 MG PO (17:22)
[2024-10-16 19:27] LABS: MRSA PCR OZH (swab) NOT DETECTED (Negative)
[2024-10-17] VITALS: BP 110/68; PULSE 72; RESP 16; TEMP 37.1; O2SAT 95
--- NOTE | 2024-10-17 01:25 | PC.NURSE ---
Addendum entered by Lourdes Hurtado LPN 10/17/24 01:41: At around 0110 Original Note: At 0110 patient awoke and used the call light to report leaking from fajardo catheter and a burning sensation at the urethral site. Patient denied any pain at this time. Manual irrigation of fajardo catheter preformed. Instilled 50 mL of sterile normal saline; immediate return of 50 mL observed. A few small clots were noted in the return. Catheter began draining urine and patient reported immediate relief following the irrigation. No further leakage noted at this time. Patient resting comfortably in bed, call light in reach, side rails up x2, patient has no questions at this time.
[2024-10-17 04:00] VITALS: BP 116/68; PULSE 84; RESP 16; TEMP 36.4; O2SAT 97
[2024-10-17 05:26] LABS: Hematocrit 29.7 % (37-53); Hemoglobin 9.90 g/dL (11.27-16.99); Mean Corpuscular HGB Conc 33.3 g/dL (30-55); Mean Corpuscular Hemoglobin 29.8 pg (27-33); Mean Corpuscular Volume 89.5 fl (82-101); Nucleated Red Blood Cells % 0 %; Platelet Count 155 10^3/cmm (157-399); Red Blood Count 3.32 10^6/uL (3.85-5.65); White Blood Count 9.47 10^3/uL (3.29-11.43)
[2024-10-17 05:50] LABS: Alanine Aminotransferase 29 U/L (0-41); Albumin Level 2.9 g/dL (3.5-5.2); Alkaline Phosphatase 77 U/L (40-130); Anion Gap 12.4 (5-19); Aspartate Amino Transferase 31 U/L (0-40); Blood Urea Nitrogen 11 mg/dL (8-23); Calcium 8.3 mg/dL (8.5-10.5); Carbon Dioxide 24 mmol/L (22-29); Chloride 100 mmol/L (98-107); Creatinine Clr Calc Pharmacy 68.3013; Globulin 2.7 g/dL (1.3-4.6); Glucose 120 mg/dL (65-115); Osmolality Calculated 277 mOsm/kg (285-295); Potassium 3.4 mmol/L (3.5-5.1); Sodium 133 mmol/L (136-145); Total Protein 5.6 g/dL (6.6-8.7)
[2024-10-17 05:52] LABS: Magnesium 2.0 mg/dL (1.7-2.3)
[2024-10-17] MEDS: piperacillin-tazobactam 3.375 GM in sodium chloride 0.9% (plus) 50 ML IV (07:28)
[2024-10-17 07:44] VITALS: BP 117/66; PULSE 80; RESP 20; TEMP 36.9; O2SAT 94
[2024-10-17 08:11] VITALS: PULSE 94; RESP 18; O2SAT 94
[2024-10-17 08:58] LABS: Troponin T (5th) Once 140 ng/L (0-15)
--- NOTE | 2024-10-17 09:34 | PM.CONSULT ---
Providers/Reason For Consult Consulting Physician/Specialty*: ARNOLD Sheridan MD/cardiology Reason for Consult*: Patient with recent PCI, admitted to the hospital with features of urosepsis/hematuria. Complaining of chest discomfort and elevated troponin Requesting Physician: Dr. Tiwari Attending Physician: Toni Lobo MD History of Present Illness History of Present Illness Jonny Chiu is a 89 year old male with a history of dyslipidemia, atherosclerotic heart disease, status post recent PCI, is admitted to the hospital with features of urosepsis/hematuria. He was found to elevated troponin T. Cardiology consult is requested for further cardiac evaluation and recommendations. This patient apparently came to this area for fishing from [facility]. He had the PCI of the? Right coronary artery in June of this year. He has been doing okay with no specific cardiac symptoms. He came with the complaints of abdominal pain, generalized weakness and hematuria. Because of the amanda hematuria, the Plavix was held and is planning to start him on heparin. According the patient, he never had any chest pain since the coronary intervention. He had some epigastric discomfort when he came in but since the admission, he is feeling much better. He has no palpitation dizziness, dizziness or syncopal episodes. His EKG showed a sinus rhythm with a left bundle branch block pattern. Occasional supraventricular ectopics. Possible old inferior DC. There is no old EKG for comparison. Patient has no history for hypertension, diabetes, CVA, peripheral artery disease, kidney disease, liver disease or bleeding disorders. He been fairly healthy and very active. He is wanting to go home. Apparently his fur repair inspector is 2 minutes away from his home and has an appointment to see him next week for a heart monitor?. Review of Systems Narrative: CONSTITUTIONAL: Generalized body aches and uneasiness at the time of admission EYES: No blurring of vision or other visual disturbances lately. ENT: No hoarseness of voice, auditory disturbances or sore throat. CARDIOVASCULAR: As mentioned above. RESPIRATORY: No significant cough. GASTROINTESTINAL: No hematemesis or melena. GENITOURINARY: Dysuria and hematuria as mentioned above INTEGUMENTARY: No skin rashes or history of skin cancer. NEURO: No transient ischemic attacks or amaurosis. PSYCHIATRIC: No history of psychosis or major depression. HEMATOLOGIC: No bleeding disorders or significant anemia. ENDOCRINE: No history of polyuria or polydipsia. MUSCULOSKELETAL: No recent joint pain or swelling. ALLERGY/IMMUNOLOGY: As mentioned above. Medications/Allergies Home Medications ?Medication ?Instructions ?Recorded ?Confirmed ?Last Taken ?Type aspirin 81 mg tablet,delayed 81 mg PO DAILY 10/13/24 10/13/24 10/12/24 07:00 History release ([place] Low Dose Aspirin) cholecalciferol (vitamin D3) 125 125 mcg PO DAILY 10/13/24 10/13/24 10/12/24 08:00 History mcg (5,000 unit) tablet (Vitamin D3) clopidogrel 75 mg tablet 75 mg PO DAILY 10/13/24 10/13/24 10/12/24 07:00 History coenzyme Q10 30 mg capsule 30 mg PO DAILY 10/13/24 10/13/24 10/12/24 08:00 History metoprolol tartrate 25 mg tablet 25 mg PO BID 10/13/24 10/13/24 10/12/24 07:00 History multivitamin with minerals-folic 1 tab PO DAILY 10/13/24 10/13/24 10/12/24 08:00 History acid 400 mcg-lycopene 370 mcg tablet (One-A-Day Men's 50 Plus) nitroglycerin 0.4 mg sublingual See Rx Instructions .Route .COMPLEX 10/13/24 10/13/24 Unknown History tablet omega 7-wms-mbg-fish oil 60 mg-90 1 cap PO DAILY 10/13/24 10/13/24 10/12/24 08:00 History mg-500 mg capsule (Fish Oil) simvastatin 40 mg tablet 40 mg PO QPM 10/13/24 10/13/24 10/11/24 20:00 History vitamin B complex 1 tab PO DAILY 10/13/24 10/13/24 10/11/24 History vitamins A,C,Z-hjiw-zwlbia 2,148 2 tab PO BID 10/13/24 10/13/24 10/12/24 07:00 History mcg-113 mg-45 mg-17.4 mg tablet (PreserVision AREDS) Allergies Allergy/AdvReac Type Severity Reaction Status Date / Time No Known Allergies Allergy Unverified 01/05/22 13:52 Current Medications Generic Name Dose Route Start Last Admin Trade Name Freq PRN Reason Stop Dose Admin Hydrocodone Bitart/Acetaminophen 1 tab 10/14/24 14:18 08/06/25 16:15 Hydrocodone-Acetaminophen 5-325 Mg Tablet PO 1 tab Q8H PRN Administration MODERATE PAIN Albuterol Sulfate 2.5 mg 10/16/24 08:12 10/16/24 08:55 Albuterol 2.5 Mg/0.5 Ml Neb INHALATION 2.5 mg Q6H.RESP PRN Administration SHORTNESS OF BREATH Aspirin 81 mg 10/14/24 09:00 10/17/24 07:27 Aspirin 81 Mg Ec Tablet PO 81 mg DAILY LLOYD Administration Atorvastatin Calcium 20 mg 10/13/24 18:00 10/16/24 17:22 Atorvastatin 10 Mg Tablet PO 20 mg QPM LLOYD Administration Clopidogrel Bisulfate 75 mg 10/14/24 09:00 10/14/24 08:44 Clopidogrel 75 Mg Tablet PO 75 mg On Hold: 10/14/24 14:19 DAILY LLOYD Administration Famotidine 20 mg 10/14/24 18:00 10/17/24 07:27 Famotidine 20 Mg Tablet PO 20 mg BID LLOYD Administration Fluticasone Propionate 1 spray 10/16/24 06:34 10/16/24 07:03 Fluticasone Nasal [place] 16gm Btl NASAL 1 spray BID PRN Administration CONGESTION Piperacillin Sod/Tazobactam 50 mls @ 12.5 mls/hr 10/16/24 16:00 10/17/24 07:28 Sod 3.375 gm/ Sodium Chloride IV 12.5 mls/hr Q8H LLOYD Administration Metoprolol Tartrate 25 mg 10/14/24 08:00 10/14/24 08:44 Metoprolol Tartrate 25 Mg Tablet PO 25 mg On Hold: 10/14/24 11:27 BID@0500,1700 LLOYD Administration Non-Formulary Medication 1 tab 10/14/24 09:00 10/17/24 09:32 Vitamin B Complex PO Not Given DAILY LLOYD Ondansetron HCl 4 mg 10/13/24 13:07 10/13/24 23:11 Ondansetron 2 Mg/Ml Sdv 2 Ml IVP 4 mg Q8H PRN Administration vomiting, or N/V if npo Phenazopyridine HCl 200 mg 10/14/24 18:00 10/17/24 07:27 Phenazopyridine 100 Mg Tablet PO 10/17/24 17:59 200 mg TIDPC LLOYD Administration Tamsulosin HCl 0.4 mg 10/14/24 14:20 10/17/24 07:27 Tamsulosin 0.4 Mg Capsule PO 0.4 mg DAILY LLOYD Administration Vitamin D 5,000 unit 10/14/24 09:00 10/17/24 07:27 Cholecalciferol (Vitamin D3) 5,000 Unit Tablet PO 5,000 unit DAILY LLOYD Administration PFSH Acute PFSH: Social History Smoking and tobacco/nicotine status: never used tobacco/nicotine Alcohol intake: never Vitals/I&O/Wt Last Vital Signs Temp 98.5 F 10/17/24 07:44 Pulse 94 10/17/24 08:11 Resp 18 10/17/24 08:11 BP 117/66 10/17/24 07:44 Pulse Ox 94 10/17/24 08:11 O2 Del Method Nasal Cannula 10/17/24 08:11 O2 Flow Rate 3 10/17/24 08:11 10/16/24 10/17/24 10/17/24 22:59 06:59 14:59 Intake Total 770 / 1680 170 / 1850 Output Total 350 / 350 300 / 650 Balance 420 / 1330 -130 / 1200 Weight last 48 hrs Weight 177 lb 5 oz Weight 183 lb 3 oz Physical Exam Urinary Catheter Management: 3-way Urethral CBI: Cath Placed During This Visit: no Reason for Continuing Indwelling Catheter: Acute Urinary Retention or Obstruction Data 10/17/24 04:18 10/17/24 04:18 Other Labs: Laboratory Last Values WBC 9.47 10^3/uL (3.29-11.43) 10/17/24 04:18 RBC 3.32 10^6/uL (3.85-5.65) L 10/17/24 04:18 Hgb 9.90 g/dL (11.27-16.99) L 10/17/24 04:18 Hct 29.7 % (37-53) L 10/17/24 04:18 MCV 89.5 fl (82-101) 10/17/24 04:18 MCH 29.8 pg (27-33) 10/17/24 04:18 MCHC 33.3 g/dL (30-55) 10/17/24 04:18 RDW 12.7 % (12.1-15.1) 10/17/24 04:18 Plt Count 155 10^3/cmm (157-399) L 10/17/24 04:18 MPV 9.0 fL (7.4-10.4) 10/17/24 04:18 Neut % (Auto) 75.3 % 10/17/24 04:18 Lymph % (Auto) 10.9 % 10/17/24 04:18 [place] % (Auto) 10.7 % 10/17/24 04:18 Eos % (Auto) 1.9 % 10/17/24 04:18 Baso % (Auto) 0.4 % 10/17/24 04:18 Neut # (Auto) 7.13 10^3/uL (1.8-7.7) 10/17/24 04:18 Lymph # (Auto) 1.0 10^3/uL (0.8-4.8) 10/17/24 04:18 [place] # (Auto) 1.0 10^3/uL (0.2-0.9) H 10/17/24 04:18 Eos # (Auto) 0.2 10^3/uL (0.0-0.8) 10/17/24 04:18 Baso # (Auto) 0.0 10^3/uL (0.0-0.1) 10/17/24 04:18 Nucleated RBC % (auto) 0 % 10/17/24 04:18 Nucleated RBCs # 0.0 /100WBC 10/17/24 04:18 D-Dimer 1.84 ug/mLFEU (0-0.59) H 10/16/24 12:10 Sodium 133 mmol/L (136-145) L 10/17/24 04:18 Potassium 3.4 mmol/L (3.5-5.1) L 10/17/24 04:18 Chloride 100 mmol/L (98-107) 10/17/24 04:18 Carbon Dioxide 24 mmol/L (22-29) 10/17/24 04:18 Anion Gap 12.4 (5-19) 10/17/24 04:18 BUN 11 mg/dL (8-23) 10/17/24 04:18 Creatinine 0.7 mg/dL (0.7-1.2) 10/17/24 04:18 GFR Calculation Not Reportable 10/17/24 04:18 Glucose 120 mg/dL (65-115) H 10/17/24 04:18 Estimat Average Glucose 108 10/14/24 03:46 Hemoglobin A1c 5.4 % (4.0-6.0) 10/14/24 03:46 Calculated Osmolality 277 mOsm/kg (285-295) L 10/17/24 04:18 Lactic Acid 3.2 mmol/L (0.5-2.2) H 10/13/24 09:03 Lactic Acid (Sepsis) 2.1 mmol/L (0.5-2.2) 10/13/24 12:01 Calcium 8.3 mg/dL (8.5-10.5) L 10/17/24 04:18 Magnesium 2.0 mg/dL (1.7-2.3) 10/17/24 04:18 Iron 14 ug/dL (59-158) L 10/14/24 03:46 TIBC 159 mcg/dl 10/14/24 03:46 % Saturation 8.8 % (20-50) L 10/14/24 03:46 Unsat Iron Binding 145 ug/dL (112-347) 10/14/24 03:46 Total Bilirubin 0.6 mg/dL (0.15-1.2) 10/17/24 04:18 AST 31 U/L (0-40) 10/17/24 04:18 ALT 29 U/L (0-41) 10/17/24 04:18 Alkaline Phosphatase 77 U/L (40-130) 10/17/24 04:18 Troponin T 5th Gen ng/L 140 ng/L (0-15) H* 10/17/24 08:20 Troponin T Baseline 95 ng/L (0-15) H 10/16/24 10:08 Troponin T 120 Minute 97.20 ng/L (0-15) H 10/16/24 12:10 Delta Troponin T 2.20 ABS# (0-10) 10/16/24 12:10 Troponin T Hi Sens 6Hr 115.2 ng/L (0-15) H 10/16/24 16:06 Troponin T Hi Sens 6Hr Delta 20.2 ng/L (0-12) H* 10/16/24 16:06 Total Protein 5.6 g/dL (6.6-8.7) L 10/17/24 04:18 Albumin 2.9 g/dL (3.5-5.2) L 10/17/24 04:18 Globulin 2.7 g/dL (1.3-4.6) 10/17/24 04:18 Triglycerides 84 mg/dL (0-150) 10/13/24 12:01 Cholesterol 91 mg/dL (0-200) 10/13/24 12:01 LDL Cholesterol, Calc 38 mg/dL (50-129) L 10/13/24 12:01 HDL Cholesterol 36 mg/dL (60-100) L 10/13/24 12:01 LDL/HDL Ratio 1.06 RATIO (0.00-3.22) 10/13/24 12:01 Cholesterol/HDL Ratio 2.53 mg/dL (1.0-5.00) 10/13/24 12:01 Lipase 17 U/L (13-60) 10/13/24 09:03 Vitamin B12 604 pg/mL (232-1245) 10/14/24 03:46 Folate 14.9 ng/mL (4.5-32.2) 10/15/24 04:28 Procalcitonin 2.12 ng/mL (0-0.5) H 10/14/24 03:46 TSH 1.22 uIU/mL (0.27-4.20) 10/13/24 12:01 Urine Color Red (Yellow) A 10/16/24 11:14 Urine Appearance Turbid (CLEAR) A 10/16/24 11:14 Urine pH 5.0 (5-7) 10/16/24 11:14 Ur Specific [place] 1.011 (1.005-1.030) 10/16/24 11:14 Urine Protein 2+ (Negative) A 10/16/24 11:14 Urine Glucose (UA) Negative (Normal) 10/16/24 11:14 Urine Ketones Negative (Negative) 10/16/24 11:14 Urine Blood 3+ (Negative) A 10/16/24 11:14 Urine Nitrate Positive (Negative) A 10/16/24 11:14 Urine Bilirubin 2+ (Negative) H 10/16/24 11:14 Urine Urobilinogen 1.0 mg/dL (Negative) 10/16/24 11:14 Ur Leukocyte Esterase 2+ (Negative) A 10/16/24 11:14 Urine RBC >100 /hpf (0-2) H 10/16/24 11:14 Urine WBC 51-100 /hpf (0-5) H 10/16/24 11:14 Ur Squamous Epith Cells 6-10 /hpf (0-5) 10/16/24 11:14 Amorphous Sediment Not Reportable 10/16/24 11:14 Urine Bacteria None seen /hpf (NONE) 10/16/24 11:14 Hyaline Casts 0-4 /lpf H 10/16/24 11:14 Nasal MRSA (PCR) Not detected (Negative) 10/16/24 17:46 Adenovirus (PCR) Not detected (NOT DETECT) 10/16/24 13:32 C. pneumoniae DNA (PCR) Not detected (NOT DETECT) 10/16/24 13:32 Coronavirus 229E (PCR) Not detected (NOT DETECT) 10/16/24 13:32 Human Metapneumovir PCR Not detected (NOT DETECT) 10/16/24 13:32 Influenza A (H1) PCR Not detected (NOT DETECT) 10/16/24 13:32 Influ A (H1/09) PCR Not detected (NOT DETECT) 10/16/24 13:32 Influenza A (H3) PCR Not detected (NOT DETECT) 10/16/24 13:32 Influenza Type A (PCR) Not detected (NOT DETECT) 10/16/24 13:32 Influenza Type B (PCR) Not detected (NOT DETECT) 10/16/24 13:32 M. pneumoniae (PCR) Not detected (NOT DETECT) 10/16/24 13:32 Parainfluenza 1 (PCR) Not detected (NOT DETECT) 10/16/24 13:32 Parainfluenza 2 (PCR) Not detected (NOT DETECT) 10/16/24 13:32 Parainfluenza 3 (PCR) Not detected (NOT DETECT) 10/16/24 13:32 Parainfluenza 4 (PCR) Not detected (NOT DETECT) 10/16/24 13:32 RSV Type A (PCR) Not detected (NOT DETECT) 10/16/24 13:32 RSV Type B (PCR) Not detected (NOT DETECT) 10/16/24 13:32 Entero/Rhino (PCR) Not detected (NOT DETECT) 10/16/24 13:32 SARS-CoV-2 (PCR) Not detected (NOT DETECT) 10/16/24 13:32 Micro: Microbiology 10/16/24 11:14 Urine Culture - Preliminary Urine,Clean Catch Other data: The EKG from today revealed sinus rhythm with left bundle branch block pattern. Occasional sublingual ectopics. Possible old inferior wall DC. Echo from 10/16/2024 LV systolic function is normal with EF of 50-55%. Grade 1 diastolic dysfunction. Left atrial dilation Trace mitral regurgitation Moderate aortic stenosis Aorta is dilated with diameter of 3.67 cm A&P Assessment and plan 1. Elevated troponin: The elevated troponin T, most likely due to a type II DC. From the hematuria and sepsis. His EKG is uninterpretable due to the left bundle branch block. The patient has no chest pain. His echocardiogram was unremarkable. 2. Atherosclerotic heart disease of [place] coronary artery with other forms of angina pectoris: The details of the angiogram is not available. According the patient, he had couple of blockages and had natural bypass. So those blockages were not intervened. He had a stent in the right coronary artery?. Currently seems to be stable. EKG is uninterpretable due to the bundle branch block. 3. Acute cystitis with hematuria: His hematuria is improving. 4. Sepsis, due to unspecified organism, unspecified whether acute organ dysfunction present: Patient is on empiric antibiotic treatment. He is remaining afebrile. 5. Dyslipidemia: May continue on the current management. Plan: Apparently the patient seems to be doing okay. He has no chest pain or abdominal pain. No fever or chills. He is wanting to go home today. He is not interested in having any further cardiac workup done in this hospital. At this point, it may be appropriate to put him back on the Plavix. The heparin may be discontinued. He may be watched on telemetry for the next 24 hours. Encourage ambulation. If he is doing okay, may be discharged home, to be followed up with his fur repair inspector. Thank you for the opportunity to evaluate this patient and make these recommendations PDMP PDMP Reviewed: Not Reviewed Coding Level of Care Code 24654 Diagnoses Elevated troponin R79.89 Atherosclerotic heart disease of [place] coronary artery with other forms of angina pectoris I25.118 Acute cystitis with hematuria N30.01 Urinary tract infection type: acute cystitis Hematuria presence: with hematuria Sepsis, due to unspecified organism, unspecified whether acute organ dysfunction present A41.9 Sepsis type: sepsis due to unspecified organism Sepsis acute organ dysfunction status: unspecified Dyslipidemia E78.5
--- NOTE | 2024-10-17 10:21 | ECG_ITS ---
[facility] Date: 2024-10-17 Pat Name: Jonny Chiu Department: Room: 251 Gender: Male [employer]: : [id number] Requested By: Toni Lobo Order Number: [id number] Reading MD: Measurements Intervals [place] Rate: 83 P: 54 NC: 243 QRS: -72 QRSD: 170 T: 88 QT: 431 QTc: 507 Interpretive Statements SINUS RHYTHM WITH FIRST DEGREE AV BLOCK LEFT AXIS DEVIATION [QRS AXIS < -30] INTRAVENTRICULAR CONDUCTION DELAY [130+ ms QRS DURATION] LATERAL MYOCARDIAL INFARCTION , OF INDETERMINATE AGE [40+ ms Q WAVE AND/OR ST/T ABNORMALITY IN I/aVL/V5/V6] WARNING: DATA QUALITY MAY AFFECT INTERPRETATION [email or web address]
[2024-10-17 11:22] VITALS: BP 114/74; PULSE 75; RESP 17; TEMP 36.8; O2SAT 92
--- NOTE | 2024-10-17 12:20 | PM.TDS ---
Transfer Summary Providers Date of Admission: 10/13/24 09:56 Date of Discharge/Transfer: 10/17/24 Attending Provider at Admission: Charissa Lares MD Attending Provider at Transfer: Toni Lobo MD Transfer Plans: Anticipated date of transfer: 10/17/24. Receiving Facility: [facility]. Receiving Provider: Dr. Bey. Diagnoses at Discharge Discharge Diagnosis 1. Elevated troponin: 2. Atherosclerotic heart disease of [place] coronary artery with other forms of angina pectoris: 3. Acute cystitis with hematuria: 4. Sepsis, due to unspecified organism, unspecified whether acute organ dysfunction present: 5. Dyslipidemia: Reason for Visit Reason for Visit N/V/D headache fever peeing blood Brief History: Per HPI Jonny Chiu is a 89 year old male with past medical history of coronary disease with PCI, hyperlipidemia, lives in [facility] presented to the hospital for feeling ill since yesterday around noon. He has been having nausea vomiting diarrhea and blood in urine. He states he has been incontinent since yesterday. In the past has not had similar issues. He is also experiencing chills. In ER CT abdomen pelvis was pursued which did not show any hydronephrosis or urinary stones. WBC count 19,000, creatinine 1.1, lactic acid 3.2. Urinalysis shows 3+ leukocyte esterase, greater than 100 WBC, 1+ ketones positive nitrates, 4+ bacteria Hospital Course Hospital Course Patient was admitted to the hospital for evaluation and management of UTI/cystitis along with hematuria. He started on broad-spectrum IV antibiotics. CT on pelvis was done which was negative for hydronephrosis or kidney stones. He was started on CBI given gross hematuria. Unfortunately even on CBI he continued to have persistent hematuria with hemoglobin dropping from 12-9.9. He failed multiple attempts of trickling down of severe fluids. During hospitalization urine culture positive for E. coli and blood cultures are negative. Patient did have episode of vomiting on Monday prior to admission. Chest x-ray showed consolidation in right upper lobe and left lower lobe. He was treated for aspiration pneumonia and is currently off oxygen. Did have episode of chest pressures. Given history of recent PCI troponin cycle was done with baseline of 95 and delta of 15-20 and 6 hours. Cardiology was consulted. Echocardiogram was done which showed an EF of 55% without regional wall motion abnormality. As per cardiology patient troponin leak is most likely in setting of stress-induced type II [place]. Given persistent hematuria transfer was sought for further evaluation by urologist and a possible cystoscopy. Physical Exam Narrative: General: Alert oriented x3, no acute distress HEENT: Normocephalic, atraumatic, EOMI, breathing room air. Cardio: Regular rate rhythm, normal S1-S2, Respiratory: Clear to auscultation bilaterally no wheezes no rhonchi. GI: Abdomen soft, nontender, nondistended, bowel sounds + Extremities: No edema bilateral lower extremities Urinary Catheter Management: 3-way Urethral CBI: Cath Placed During This Visit: no Reason for Continuing Indwelling Catheter: Acute Urinary Retention or Obstruction TS Data Studies Completed and Pending Pending at discharge Category Date Time Status Blood Culture Stat Lab 10/13/24 09:42 Results Complete Blood Count w/Auto AM LABS Lab 10/18/24 04:00 Ordered Comprehensive Metabolic Panel AM LABS Lab 10/18/24 04:00 Ordered OVA and Parasites, Conc and PE Routine Lab 10/13/24 13:59 Received Stool Culture - Enteric [Salmonella / Shigella / Campy] Lab 10/13/24 13:59 Received Routine Urine Culture Routine Lab 10/16/24 11:14 Results Completed Studies During Hospitalization Category Date Time Status CT abdomen pelvis w con* [id number] Stat Cat Scan 10/13/24 09:04 Completed CTA chest [CT angio chest PE protcl [id number]] Routine Cat Scan 10/16/24 14:38 Completed XR chest 1V portable [id number] Routine Exams 10/16/24 08:59 Completed XR chest 1V portable [id number] Stat Exams 10/13/24 08:57 Completed CV. echo complete* [id number] Urgent Ultrasound 10/16/24 11:55 Completed Laboratory Last Values WBC 9.47 10^3/uL (3.29-11.43) 10/17/24 04:18 RBC 3.32 10^6/uL (3.85-5.65) L 10/17/24 04:18 Hgb 9.90 g/dL (11.27-16.99) L 10/17/24 04:18 Hct 29.7 % (37-53) L 10/17/24 04:18 MCV 89.5 fl (82-101) 10/17/24 04:18 MCH 29.8 pg (27-33) 10/17/24 04:18 MCHC 33.3 g/dL (30-55) 10/17/24 04:18 RDW 12.7 % (12.1-15.1) 10/17/24 04:18 Plt Count 155 10^3/cmm (157-399) L 10/17/24 04:18 MPV 9.0 fL (7.4-10.4) 10/17/24 04:18 Neut % (Auto) 75.3 % 10/17/24 04:18 Lymph % (Auto) 10.9 % 10/17/24 04:18 Carter % (Auto) 10.7 % 10/17/24 04:18 Eos % (Auto) 1.9 % 10/17/24 04:18 Baso % (Auto) 0.4 % 10/17/24 04:18 Neut # (Auto) 7.13 10^3/uL (1.8-7.7) 10/17/24 04:18 Lymph # (Auto) 1.0 10^3/uL (0.8-4.8) 10/17/24 04:18 Carter # (Auto) 1.0 10^3/uL (0.2-0.9) H 10/17/24 04:18 Eos # (Auto) 0.2 10^3/uL (0.0-0.8) 10/17/24 04:18 Baso # (Auto) 0.0 10^3/uL (0.0-0.1) 10/17/24 04:18 Nucleated RBC % (auto) 0 % 10/17/24 04:18 Nucleated RBCs # 0.0 /100WBC 10/17/24 04:18 D-Dimer 1.84 ug/mLFEU (0-0.59) H 10/16/24 12:10 Sodium 133 mmol/L (136-145) L 10/17/24 04:18 Potassium 3.4 mmol/L (3.5-5.1) L 10/17/24 04:18 Chloride 100 mmol/L (98-107) 10/17/24 04:18 Carbon Dioxide 24 mmol/L (22-29) 10/17/24 04:18 Anion Gap 12.4 (5-19) 10/17/24 04:18 BUN 11 mg/dL (8-23) 10/17/24 04:18 Creatinine 0.7 mg/dL (0.7-1.2) 10/17/24 04:18 GFR Calculation Not Reportable 10/17/24 04:18 Glucose 120 mg/dL (65-115) H 10/17/24 04:18 Estimat Average Glucose 108 10/14/24 03:46 Hemoglobin A1c 5.4 % (4.0-6.0) 10/14/24 03:46 Calculated Osmolality 277 mOsm/kg (285-295) L 10/17/24 04:18 Lactic Acid 3.2 mmol/L (0.5-2.2) H 10/13/24 09:03 Lactic Acid (Sepsis) 2.1 mmol/L (0.5-2.2) 10/13/24 12:01 Calcium 8.3 mg/dL (8.5-10.5) L 10/17/24 04:18 Magnesium 2.0 mg/dL (1.7-2.3) 10/17/24 04:18 Iron 14 ug/dL (59-158) L 10/14/24 03:46 TIBC 159 mcg/dl 10/14/24 03:46 % Saturation 8.8 % (20-50) L 10/14/24 03:46 Unsat Iron Binding 145 ug/dL (112-347) 10/14/24 03:46 Total Bilirubin 0.6 mg/dL (0.15-1.2) 10/17/24 04:18 AST 31 U/L (0-40) 10/17/24 04:18 ALT 29 U/L (0-41) 10/17/24 04:18 Alkaline Phosphatase 77 U/L (40-130) 10/17/24 04:18 Troponin T 5th Gen ng/L 140 ng/L (0-15) H* 10/17/24 08:20 Troponin T Baseline 95 ng/L (0-15) H 10/16/24 10:08 Troponin T 120 Minute 97.20 ng/L (0-15) H 10/16/24 12:10 Delta Troponin T 2.20 ABS# (0-10) 10/16/24 12:10 Troponin T Hi Sens 6Hr 115.2 ng/L (0-15) H 10/16/24 16:06 Troponin T Hi Sens 6Hr Delta 20.2 ng/L (0-12) H* 10/16/24 16:06 Total Protein 5.6 g/dL (6.6-8.7) L 10/17/24 04:18 Albumin 2.9 g/dL (3.5-5.2) L 10/17/24 04:18 Globulin 2.7 g/dL (1.3-4.6) 10/17/24 04:18 Triglycerides 84 mg/dL (0-150) 10/13/24 12:01 Cholesterol 91 mg/dL (0-200) 10/13/24 12:01 LDL Cholesterol, Calc 38 mg/dL (50-129) L 10/13/24 12:01 HDL Cholesterol 36 mg/dL (60-100) L 10/13/24 12:01 LDL/HDL Ratio 1.06 RATIO (0.00-3.22) 10/13/24 12:01 Cholesterol/HDL Ratio 2.53 mg/dL (1.0-5.00) 10/13/24 12:01 Lipase 17 U/L (13-60) 10/13/24 09:03 Vitamin B12 604 pg/mL (232-1245) 10/14/24 03:46 Folate 14.9 ng/mL (4.5-32.2) 10/15/24 04:28 Procalcitonin 2.12 ng/mL (0-0.5) H 10/14/24 03:46 TSH 1.22 uIU/mL (0.27-4.20) 10/13/24 12:01 Urine Color Red (Yellow) A 10/16/24 11:14 Urine Appearance Turbid (CLEAR) A 10/16/24 11:14 Urine pH 5.0 (5-7) 10/16/24 11:14 Ur Specific [place] 1.011 (1.005-1.030) 10/16/24 11:14 Urine Protein 2+ (Negative) A 10/16/24 11:14 Urine Glucose (UA) Negative (Normal) 10/16/24 11:14 Urine Ketones Negative (Negative) 10/16/24 11:14 Urine Blood 3+ (Negative) A 10/16/24 11:14 Urine Nitrate Positive (Negative) A 10/16/24 11:14 Urine Bilirubin 2+ (Negative) H 10/16/24 11:14 Urine Urobilinogen 1.0 mg/dL (Negative) 10/16/24 11:14 Ur Leukocyte Esterase 2+ (Negative) A 10/16/24 11:14 Urine RBC >100 /hpf (0-2) H 10/16/24 11:14 Urine WBC 51-100 /hpf (0-5) H 10/16/24 11:14 Ur Squamous Epith Cells 6-10 /hpf (0-5) 10/16/24 11:14 Amorphous Sediment Not Reportable 10/16/24 11:14 Urine Bacteria None seen /hpf (NONE) 10/16/24 11:14 Hyaline Casts 0-4 /lpf H 10/16/24 11:14 Nasal MRSA (PCR) Not detected (Negative) 10/16/24 17:46 Adenovirus (PCR) Not detected (NOT DETECT) 10/16/24 13:32 C. pneumoniae DNA (PCR) Not detected (NOT DETECT) 10/16/24 13:32 Coronavirus 229E (PCR) Not detected (NOT DETECT) 10/16/24 13:32 Human Metapneumovir PCR Not detected (NOT DETECT) 10/16/24 13:32 Influenza A (H1) PCR Not detected (NOT DETECT) 10/16/24 13:32 Influ A (H1/09) PCR Not detected (NOT DETECT) 10/16/24 13:32 Influenza A (H3) PCR Not detected (NOT DETECT) 10/16/24 13:32 Influenza Type A (PCR) Not detected (NOT DETECT) 10/16/24 13:32 Influenza Type B (PCR) Not detected (NOT DETECT) 10/16/24 13:32 M. pneumoniae (PCR) Not detected (NOT DETECT) 10/16/24 13:32 Parainfluenza 1 (PCR) Not detected (NOT DETECT) 10/16/24 13:32 Parainfluenza 2 (PCR) Not detected (NOT DETECT) 10/16/24 13:32 Parainfluenza 3 (PCR) Not detected (NOT DETECT) 10/16/24 13:32 Parainfluenza 4 (PCR) Not detected (NOT DETECT) 10/16/24 13:32 RSV Type A (PCR) Not detected (NOT DETECT) 10/16/24 13:32 RSV Type B (PCR) Not detected (NOT DETECT) 10/16/24 13:32 Entero/Rhino (PCR) Not detected (NOT DETECT) 10/16/24 13:32 SARS-CoV-2 (PCR) Not detected (NOT DETECT) 10/16/24 13:32 Radiology Impressions Abdomen/Pelvis CT 10/13/24 09:04 IMPRESSION: No hydronephrosis on either side or urinary stones. COMMENTS: Consistent with the [place] [employer]'s Incidental Findings Committee white paper (J Am Roberta Radiol 2018): Any incidental renal lesion less than 1 cm or classified as too small to characterize, or any incidental cystic renal lesion characterized as simple-appearing, is likely benign. No follow-up imaging is recommended for these lesions per consensus recommendations based on imaging criteria. Chest X-Ray 10/16/24 08:59 IMPRESSION: The rapidity of development and the multiple locations of the lung abnormalities suggest the possibility of aspiration. Very atypical pattern for pulmonary edema. Viral pneumonitis is possible. Chest CTA 10/16/24 14:38 IMPRESSION: 1. No pulmonary embolism. 2. Consolidation involving a large portion of the RIGHT upper lobe consistent with pneumonia. 3. Additional subsolid consolidation in the RIGHT middle lobe and groundglass consolidation LEFT upper lobe. 4. No pathologically enlarged lymph nodes. 5. 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 Microbiology 10/16/24 11:14 Urine,Clean Catch Urine Culture - Preliminary 10/13/24 08:53 Urine,Clean Catch Urine Culture - Final Escherichia coli 10/13/24 09:42 Blood Blood Culture - Preliminary NEGATIVE TO DATE 10/13/24 09:40 Blood Blood Culture - Preliminary NEGATIVE TO DATE Echocardiogram: CONCLUSIONS LV systolic function is normal with EF of 50-55%. Grade 1 diastolic dysfunction. Left atrial dilation Trace mitral regurgitation Moderate aortic stenosis Aorta is dilated with diameter of 3.67 cm Branden Jacob MD (Electronically Signed) Final Date: 16 October 2024 13:00 S Recent Clincial Data Last Vital Signs Temp 98.2 F 10/17/24 11:22 Pulse 75 10/17/24 11:22 Resp 17 10/17/24 11:22 BP 114/74 10/17/24 11:22 Pulse Ox 92 10/17/24 11:22 O2 Del Method Room Air 10/17/24 11:22 O2 Flow Rate 3 10/17/24 08:11 Vital Signs Temp Pulse Resp BP Pulse Ox O2 Del Method O2 Flow Rate 10/17/24 11:22 98.2 F 75 17 114/74 92 Room Air 10/17/24 08:11 94 18 94 Nasal Cannula 3 10/17/24 07:44 98.5 F 80 20 H 117/66 94 Nasal Cannula 10/17/24 04:00 97.5 F L 84 16 116/68 97 Nasal Cannula 2 Intake & Output/Weight 10/15/24 10/16/24 10/17/24 10/18/24 06:59 06:59 06:59 06:59 Intake Total 2160 / 2160 3018.75 / 3018.75 1850 / 1850 170 / 170 Output Total 650 / 650 500 / 500 Balance 2160 / 2160 3018.75 / 3018.75 1200 / 1200 -330 / -330 Weight 83.631 kg 83.092 kg 80.428 kg Vitals Last Vital Signs Temp 98.2 F 10/17/24 11:22 Pulse 75 10/17/24 11:22 Resp 17 10/17/24 11:22 BP 114/74 10/17/24 11:22 Pulse Ox 92 10/17/24 11:22 O2 Del Method Room Air 10/17/24 11:22 O2 Flow Rate 3 10/17/24 08:11 TS Medications Medications Acetaminophen (Acetaminophen 325 Mg Tablet) 650 mg PO Q6H PRN PRN Reason: Mild/Mod Pain Or Temp >/= 101 Hydrocodone Bitart/Acetaminophen (Hydrocodone-Acetaminophen 5-325 Mg Tablet) 1 tab PO Q8H PRN PRN Reason: MODERATE PAIN Last Admin: 10/16/24 16:15 Dose: 1 tab Albuterol Sulfate (Albuterol 2.5 Mg/0.5 Ml Neb) 2.5 mg INHALATION Q6H.RESP PRN PRN Reason: SHORTNESS OF BREATH Last Admin: 10/16/24 08:55 Dose: 2.5 mg Aspirin (Aspirin 81 Mg Ec Tablet) 81 mg PO DAILY [facility] Last Admin: 10/17/24 07:27 Dose: 81 mg Atorvastatin Calcium (Atorvastatin 10 Mg Tablet) 20 mg PO QPM [facility] Last Admin: 10/16/24 17:22 Dose: 20 mg Clopidogrel Bisulfate (Clopidogrel 75 Mg Tablet) 75 mg PO DAILY [facility] On Hold: 10/14/24 14:19 Last Admin: 10/14/24 08:44 Dose: 75 mg Famotidine (Famotidine 20 Mg Tablet) 20 mg PO BID [facility] Last Admin: 10/17/24 07:27 Dose: 20 mg Fluticasone Propionate (Fluticasone Nasal [place] 16gm Btl) 1 spray NASAL BID PRN PRN Reason: CONGESTION Last Admin: 10/16/24 07:03 Dose: 1 spray Piperacillin Sod/Tazobactam (Sod 3.375 gm/ Sodium Chloride) 50 mls @ 12.5 mls/hr IV Q8H [facility] Last Infusion: 10/17/24 11:40 Dose: Infused Metoprolol Tartrate (Metoprolol Tartrate 25 Mg Tablet) 25 mg PO BID@0500,1700 [facility] On Hold: 10/14/24 11:27 Last Admin: 10/14/24 08:44 Dose: 25 mg Non-Formulary Medication (Vitamin B Complex) 1 tab PO DAILY [facility] Last Admin: 10/17/24 09:32 Dose: Not Given Ondansetron HCl (Ondansetron 2 Mg/Ml Sdv 2 Ml) 4 mg IVP Q8H PRN PRN Reason: vomiting, or N/V if npo Last Admin: 10/13/24 23:11 Dose: 4 mg Phenazopyridine HCl (Phenazopyridine 100 Mg Tablet) 200 mg PO TIDPC [facility] Stop: 10/17/24 17:59 Last Admin: 10/17/24 11:40 Dose: 200 mg Tamsulosin HCl (Tamsulosin 0.4 Mg Capsule) 0.4 mg PO DAILY [facility] Last Admin: 10/17/24 07:27 Dose: 0.4 mg Vitamin D (Cholecalciferol (Vitamin D3) 5,000 Unit Tablet) 5,000 unit PO DAILY [facility] Last Admin: 10/17/24 07:27 Dose: 5,000 unit Discontinued Medications Acetaminophen (Acetaminophen 325 Mg Tablet) 650 mg PO Q6H PRN PRN Reason: Mild/Mod Pain Or Temp >/= 101 Hydrocodone Bitart/Acetaminophen (Hydrocodone-Acetaminophen 5-325 Mg Tablet) 1 tab PO ONCE ONE Stop: 10/14/24 13:50 Last Admin: 10/14/24 14:11 Dose: 1 tab Aspirin (Aspirin 81 Mg Chew Tablet) 81 mg PO ONCE ONE Stop: 10/16/24 11:01 Last Admin: 10/16/24 11:29 Dose: 81 mg Aspirin (Aspirin 81 Mg Chew Tablet) 162 mg PO ONCE ONE Stop: 10/16/24 11:01 Last Admin: 10/16/24 11:29 Dose: 162 mg Ceftriaxone Sodium (Ceftriaxone 1,000 Mg Sdv) 1,000 mg IVP ONCE ONE; Protocol Stop: 10/13/24 09:49 Last Admin: 10/13/24 09:56 Dose: 1,000 mg Ceftriaxone Sodium (Ceftriaxone 1,000 Mg Sdv) 1,000 mg IVP Q24H [facility]; Protocol Last Admin: 10/16/24 09:37 Dose: 1,000 mg Furosemide (Furosemide 10 Mg/Ml Sdv 4ml) 40 mg IVP ONCE ONE Stop: 10/16/24 11:55 Last Admin: 10/16/24 13:24 Dose: 40 mg Heparin Sodium (Porcine) (Heparin 5,000 Unit/Ml Inj 1 Ml) 5,000 unit SUBCUT Q12H [facility] Last Admin: 10/13/24 13:27 Dose: Not Given Heparin Sodium (Porcine) (Heparin 5,000 Unit/Ml Inj 1 Ml) 5,000 unit SUBCUT Q12H [facility] Last Admin: 10/14/24 01:57 Dose: Not Given Heparin Sodium (Porcine) (Heparin 5,000 Unit/Ml Inj 1 Ml) 0 unit IVP PRN PRN; Protocol PRN Reason: Heparin Weight Based Protocol -Subsequent Bolus Heparin Sodium (Porcine) (Heparin 5,000 Unit/Ml Inj 1 Ml) 0 unit IVP ONCE ONE; Protocol Stop: 10/17/24 09:05 Last Admin: 10/17/24 12:04 Dose: Not Given Sodium Chloride (Sodium Chloride 0.9%) 1,000 mls @ 999 mls/hr IV .Q1H1M ONE Stop: 10/13/24 09:57 Last Infusion: 10/13/24 10:48 Dose: Infused Sodium Chloride (Sodium Chloride 0.9%) 1,000 mls @ 999 mls/hr IV .Q1H1M ONE Stop: 10/13/24 10:12 Last Infusion: 10/13/24 10:48 Dose: Infused Sodium Chloride (Sodium Chloride 0.9%) 500 mls @ 999 mls/hr IV .Q31M ONE Stop: 10/13/24 09:42 Last Infusion: 10/13/24 10:21 Dose: Infused Piperacillin Sod/Tazobactam (Sod 3.375 gm/ Sodium Chloride) 50 mls @ 12.5 mls/hr IV Q8H [facility]; Protocol Last Infusion: 10/16/24 06:52 Dose: Infused Sodium Chloride (Sodium Chloride 0.9%) 1,000 mls @ 75 mls/hr IV .[id number] [facility] Last Infusion: 10/16/24 09:06 Dose: Infused Piperacillin Sod/Tazobactam (Sod / Sodium Chloride) 50 mls @ 0 mls/hr [id number] CONT [facility]; Protocol Heparin Sodium/Sodium Chloride (Heparin Drip) 25,000 unit in 500 mls @ 0 mls/hr IV CONT [facility]; Protocol Last Admin: 10/17/24 12:04 Dose: Not Given Iohexol (Iohexol 350 Mg/Ml 500 Ml Btl (Per Ml)) 0 ml IV ONCE ONE Stop: 10/13/24 09:20 Last Admin: 10/13/24 09:19 Dose: 80 ml Iohexol (Iohexol 350 Mg/Ml 500 Ml Btl (Per Ml)) 0 ml IV ONCE ONE Stop: 10/16/24 15:06 Last Admin: 10/16/24 15:06 Dose: 100 ml Metoprolol Tartrate (Metoprolol Tartrate 25 Mg Tablet) 25 mg PO BID [facility] Last Admin: 10/13/24 17:10 Dose: 25 mg Morphine Sulfate (Morphine 4 Mg/Ml Sdv 1 Ml) 2 mg IVP ONCE ONE Stop: 10/15/24 04:49 Last Admin: 10/15/24 05:16 Dose: Not Given Ondansetron HCl (Ondansetron 2 Mg/Ml Sdv 2 Ml) 4 mg IVP ONCE ONE Stop: 10/13/24 08:58 Last Admin: 10/13/24 09:52 Dose: 4 mg Ondansetron HCl (Ondansetron 2 Mg/Ml Sdv 2 Ml) 4 mg IVP Q8H PRN PRN Reason: vomiting, or N/V if npo Phenazopyridine HCl (Phenazopyridine 100 Mg Tablet) 200 mg PO ONCE ONE Stop: 10/14/24 13:47 Last Admin: 10/14/24 14:12 Dose: 200 mg Allergies No Known Allergies Allergy (Unverified 01/05/22 13:52) Home Medications aspirin 81 mg tablet,delayed release ([place] Low Dose Aspirin) 81 mg PO DAILY 10/13/24 [History Confirmed 10/13/24] cholecalciferol (vitamin D3) 125 mcg (5,000 unit) tablet (Vitamin D3) 125 mcg PO DAILY 10/13/24 [History Confirmed 10/13/24] clopidogrel 75 mg tablet 75 mg PO DAILY 10/13/24 [History Confirmed 10/13/24] coenzyme Q10 30 mg capsule 30 mg PO DAILY 10/13/24 [History Confirmed 10/13/24] metoprolol tartrate 25 mg tablet 25 mg PO BID 10/13/24 [History Confirmed 10/13/24] multivitamin with minerals-folic acid 400 mcg-lycopene 370 mcg tablet (One-A-Day Men's 50 Plus) 1 tab PO DAILY 10/13/24 [History Confirmed 10/13/24] nitroglycerin 0.4 mg sublingual tablet See Rx Instructions .Route .COMPLEX 10/13/24 [History Confirmed 10/13/24] omega 9-znd-ihp-fish oil 60 mg-90 mg-500 mg capsule (Fish Oil) 1 cap PO DAILY 10/13/24 [History Confirmed 10/13/24] simvastatin 40 mg tablet 40 mg PO QPM 10/13/24 [History Confirmed 10/13/24] vitamin B complex 1 tab PO DAILY 10/13/24 [History Confirmed 10/13/24] vitamins A,C,K-xpib-veiujo 2,148 mcg-113 mg-45 mg-17.4 mg tablet (PreserVision AREDS) 2 tab PO BID 10/13/24 [History Confirmed 10/13/24] Discharge Plan Discharge Patient Disposition: Home Condition: Stable Prescriptions: No Action clopidogrel 75 mg tablet 75 mg PO DAILY simvastatin 40 mg tablet 40 mg PO QPM nitroglycerin 0.4 mg tablet, sublingual See Rx Instructions .ROUTE .COMPLEX Rx Instructions: DISSOLVE ONE TABLET UNDER THE TONGUE EVERY 5 MINUTES NEEDED FOR CHEST PAIN. DO NOT EXCEED A TOTAL OF 3 DOSES IN 15 MINUTES metoprolol tartrate 25 mg tablet 25 mg PO BID aspirin [[place] Low Dose Aspirin] 81 mg Tablet,Delayed Release (Dr/Ec) 81 mg PO DAILY vitamin B complex Tablet 1 tab PO DAILY coenzyme Q10 [CoQ-10] 30 mg Capsule 30 mg PO DAILY cholecalciferol (vitamin D3) [Vitamin D3] 125 mcg (5,000 unit) Tablet 125 mcg PO DAILY PreserVision AREDS 2,148 mcg-113 mg-45 mg-17.4mg Tablet 2 tab PO BID Rx Instructions: administer with AM and PM meals omega 5-tbf-fvs-fish oil [Fish Oil] 60-90-500 mg Capsule 1 cap PO DAILY One-A-Day Men's 50 Plus 400-370 mcg Tablet 1 tab PO DAILY Discharge Order = DC NOW: Transfer Out of Facility (Order); Ordered 10/17/24 Ordered By: Toni Lobo Patient Instructions: Opioid Safety, Patient Portal & Sally Instructions Transfer Attestations Time Spent in Transfer Care: greater than 30 min Specific Discharge Activities: educating patient, educating and/or supporting family/caregiver, discussing with pcp/other providers, discussing with test case developer/social workers/dc planners, documenting/other paperwork and evaluating patient/reviewing data Status at Transfer: Cognitive status at transfer: cognitively intact; Behavioral status at transfer: cooperative; Functional status at transfer: independent ambulation; Overall status at transfer: patient is not back to baseline Quality Metrics Clinical Quality Measures [ No reported AMI, CVA or VTE this stay] Coding Level of Care Code 97984 Total time (in minutes) for Discharge: 70 Diagnoses Elevated troponin R79.89 Atherosclerotic heart disease of [place] coronary artery with other forms of angina pectoris I25.118 Acute cystitis with hematuria N30.01 Hematuria presence: with hematuria Urinary tract infection type: acute cystitis Sepsis, due to unspecified organism, unspecified whether acute organ dysfunction present A41.9 Sepsis type: sepsis due to unspecified organism Sepsis acute organ dysfunction status: unspecified Dyslipidemia E78.5
[2024-10-17 15:27] VITALS: BP 143/77; PULSE 84; RESP 18; TEMP 36.9; O2SAT 92
[2024-10-17] MEDS: ATORVASTATIN 10 MG TABLET 20 MG PO (16:49)
[2024-10-17] MEDS: HYDROcodone-acetaminophen 5-325 mg Tablet 1 TAB PO (16:50)
== END 2024-10-17 17:37 | disposition short-term general hospital (02) | DRG 872 ==
LOC: ER 10:09 → ER IP 10:14 → MEDSURG 15:17
PROVIDERS: Admitting Provider Internal Medicine; Emergency Provider Emergency Medicine; Visit Provider Student in an Organized Health Care Education/Training Program
DX: A41.9 Sepsis, unspecified organism (principal); N30.01 Acute cystitis with hematuria; R11.2 Nausea with vomiting, unspecified; R79.89 Other specified abnormal findings of blood chemistry; I25.118 Atherosclerotic heart disease of native coronary artery with other forms of angina pectoris; B96.20 Unspecified Escherichia coli [E. coli] as the cause of diseases classified elsewhere; E78.5 Hyperlipidemia, unspecified; R32 Unspecified urinary incontinence; Z79.02 Long term (current) use of antithrombotics/antiplatelets; R19.7 Diarrhea, unspecified; Z98.61 Coronary angioplasty status; Z79.899 Other long term (current) drug therapy; Z79.82 Long term (current) use of aspirin; Z11.52 Encounter for screening for COVID-19
CPT/HCPCS: 36415; 71045; 71275; 74177; 80053; 80061; 81001; 82607; 82746; 83036; 83540; 83550; 83605; 83690; 83735; 84145; 84443; 84484; 85025; 85378; 87040; 87045; 87077; 87086; 87177; 87186; 87209; 87427; 87449; 87486; 87581; 87633; 92610; 93005; 93306; 94640; 94664; 96365; 96372; 96375; 99285; J0696; J1644; J1938; J2405; J2543; J7030; J7040; J7611; J9999